=== PATIENT | female | born 1995 | race Two or more races ===

== ENCOUNTER 2024-01-21 01:22 | Emergency (ER) | payer OTHER, SELFPAY ==
[2024-01-21 01:26] VITALS: BP 132/100; PULSE 91; RESP 15; TEMP 36.6; O2SAT 99
--- NOTE | 2024-01-21 01:29 | ED_ITS ---
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 Patient states she started her period 2 days ago. She states she normally does not have menstrual cramps. Also states she vomited twice today which is abnormal. States she has been changing her pad twice daily. Denies vaginal discharge, dysuria, concern f or STDs. States she attempted Tylenol ibuprofen today without improvement. No fevers. Related Data Allergies Allergy/AdvReac Type Severity Reaction Status Date / Time No Known Allergies Allergy Verified 01/21/24 01:31 Review of Systems Review of Systems: All systems reviewed & are unremarkable except as noted in HPI and below Exam Narrative: GENERAL: Well-appearing, well-nourished, and in no acute distress. HEAD: Normocephalic, atraumatic. EYES: EOMI. ENT: Nares clear, no rhinorrhea or epistaxis. Mucous membranes moist. NECK: Supple. CHEST: Clear to auscultation. No respiratory distress. HEART: Regular rate and rhythm. No murmur heard. Normal peripheral pulses. ABDOMEN: Normoactive bowel sounds. Abdomen soft with minimal tenderness in the suprapubic region. No rebound, guarding or rigidity EXTREMITIES: Normal range of motion. No edema. SKIN: Warm, dry, no rash. NEURO: No focal deficits. Alert and oriented x3 Course Vital Signs Vital signs: Vital Signs Temperature 98 F 01/21/24 01:26 Pulse Rate 91 01/21/24 01:26 Respiratory Rate 15 01/21/24 01:26 Blood Pressure 132/100 H 01/21/24 01:26 Pulse Oximetry 99 01/21/24 01:26 Oxygen Delivery Room Air 01/21/24 01:26 Temperature 98 F 01/21/24 01:26 Pulse Rate 88 01/21/24 02:33 Respiratory Rate 15 01/21/24 02:33 Blood Pressure 136/96 H 01/21/24 02:33 Pulse Oximetry 100 01/21/24 02:33 Oxygen Delivery Room Air 01/21/24 01:26 MDM - Female Genitourinary MDM Narrative Medical decision making narrative: 29-year-old female presents to the emergency department for menstrual cramping x1 day. Also reporting 2 episodes of vomiting today. Vitals with elevated blood pressure, otherwise unremarkable. She is afebrile nontoxic appearing. Exam significant for the above. is negative. CBC with mild leukocytosis of 10.3, hemoglobin 11.5. Chemistries are unremarkable. No prior for comparison. UA w/o UTI. Patient updated on results. She was given IV Toradol and Zofran with improvement in symptoms. Advised to follow-up closely with OBGYN. Strict ED return precautions discussed. She is agreeable to plan verbalized understanding. Discharged in stable condition Lab Data 01/21/24 01:44 01/21/24 01:58 Labs: Lab Results 01/21/24 01/21/24 01/21/24 Range/Units 01:44 01:58 02:04 WBC 12.3 H (4.5-10.0) K/mm3 RBC 4.07 L (4.2-5.4) M/mm3 Hgb 11.5 L (12.0-15.0) g/dL Hct 36.0 L (37.0-47.0) % MCV 88.5 (80-100) fl MCH 28.3 (26-34) pg MCHC 31.9 L (32-36) g/dl RDW 13.7 (11.5-14.5) % Plt Count 270 (150-375) k/mm3 MPV 9.6 (7.4-10.4) fl Immature Gran % (Auto) 0.3 (0-0.5) % Neut % (Auto) 74.0 H (45.5-73.1) % Lymph % (Auto) 17.6 L (18.3-44.2) % [place] % (Auto) 6.8 (2.6-8.5) % Eos % (Auto) 1.1 (0-4.4) % Baso % (Auto) 0.2 (0.2-1.2) % Lymph # (Auto) 2.16 (0.9-3.2) K/mm3 [place] # (Auto) 0.8 H (0.1-0.6) K/mm3 Eos # (Auto) 0.1 (0-0.3) K/mm3 Baso # (Auto) 0.0 (0.0-0.1) K/mm3 Abs Immat Gran (auto) 0.04 H (0.00-0.031) K/mm3 Absolute Neuts (auto) 9.1 H (1.3-6.7) K/mm3 Absolute Nucleated RBC 0.000 (0.0-0.012) K/mm3 Nucleated RBC % 0.0 (0.0-0.2) % Sodium 137 (137-145) mmol/L Potassium 4.0 (3.4-5.0) mmol/L Chloride 108 H (98-107) mmol/L Carbon Dioxide 23 (22-30) mmol/L Anion Gap 6 (4-12) mmol/L BUN 13 (7-17) mg/dL Creatinine 0.50 L (0.7-1.0) mg/dL Estim Creat Clear Calc 133 ml/min Estimated GFR > 60 (59 - ) Glucose 98 (65-110) mg/dL Calcium 8.6 (8.4-10.2) mg/dL Urine Color Yellow (Yellow) Urine Appearance Clear (Clear) Urine pH 5.0 (5.0-9.0) Ur Specific [place] 1.025 (1.001-1.035) Urine Protein Negative (Negative) mg/dL Urine Glucose (UA) Negative (Negative) mg/dL Urine Ketones Negative (Negative) mg/dL Ur Blood (Man) Negative (Negative) Urine Nitrate Negative (Negative) Urine Bilirubin Negative (Negative) Urine Urobilinogen 0.2 (<2.0) mg/dL Leukocyte Esterase Rfl 1+ H (Negative) EMBER/UL Urine RBC 0-2 (0-2) /hpf Urine WBC 0-5 (0-3) /hpf Ur Squamous Epith Cells None seen (Few) /hpf Urine Bacteria None seen /hpf Urine Casts 0-2 POC Urine HCG, Qual (Negative) 01/21/24 Range/Units 02:09 WBC (4.5-10.0) K/mm3 RBC (4.2-5.4) M/mm3 Hgb (12.0-15.0) g/dL Hct (37.0-47.0) % MCV (80-100) fl MCH (26-34) pg MCHC (32-36) g/dl RDW (11.5-14.5) % Plt Count (150-375) k/mm3 MPV (7.4-10.4) fl Immature Gran % (Auto) (0-0.5) % Neut % (Auto) (45.5-73.1) % Lymph % (Auto) (18.3-44.2) % [place] % (Auto) (2.6-8.5) % Eos % (Auto) (0-4.4) % Baso % (Auto) (0.2-1.2) % Lymph # (Auto) (0.9-3.2) K/mm3 [place] # (Auto) (0.1-0.6) K/mm3 Eos # (Auto) (0-0.3) K/mm3 Baso # (Auto) (0.0-0.1) K/mm3 Abs Immat Gran (auto) (0.00-0.031) K/mm3 Absolute Neuts (auto) (1.3-6.7) K/mm3 Absolute Nucleated RBC (0.0-0.012) K/mm3 Nucleated RBC % (0.0-0.2) % Sodium (137-145) mmol/L Potassium (3.4-5.0) mmol/L Chloride (98-107) mmol/L Carbon Dioxide (22-30) mmol/L Anion Gap (4-12) mmol/L BUN (7-17) mg/dL Creatinine (0.7-1.0) mg/dL Estim Creat Clear Calc ml/min Estimated GFR (59 - ) Glucose (65-110) mg/dL Calcium (8.4-10.2) mg/dL Urine Color (Yellow) Urine Appearance (Clear) Urine pH (5.0-9.0) Ur Specific [place] (1.001-1.035) Urine Protein (Negative) mg/dL Urine Glucose (UA) (Negative) mg/dL Urine Ketones (Negative) mg/dL Ur Blood (Man) (Negative) Urine Nitrate (Negative) Urine Bilirubin (Negative) Urine Urobilinogen (<2.0) mg/dL Leukocyte Esterase Rfl (Negative) EMBER/UL Urine RBC (0-2) /hpf Urine WBC (0-3) /hpf Ur Squamous Epith Cells (Few) /hpf Urine Bacteria /hpf Urine Casts POC Urine HCG, Qual Negative (Negative) Discharge Plan Discharge Clinical Impression: Menstrual cramps Patient Disposition: Home, Self-Care Condition: Stable Instructions: Antibiotic Form, Dysmenorrhea (ED) Additional Instructions: You were evaluated in the emergency department for menstrual cramps. Your workup here is reassuring. Please take the anti-inflammatories as needed follow-up with an OBGYN. Return to the emergency department if he develops significantly worsening pain, fever, a saturate through 1 pad per hour or other concerning symptoms. Prescriptions: New ibuprofen 800 mg tablet 800 mg PO TID PRN (Reason: pain) Qty: 20 0RF ondansetron 4 mg tablet,disintegrating 4 mg PO Q8H Qty: 14 0RF Follow-up/Referrals: Rufus Dyer MD [Physician] - 1 Day UNKNOWN,DOCTOR [Non-Staff] -
[2024-01-21] MEDS: KETOROLAC 15 MG/ML VIAL (*BKC) IV PUSH ×2 (01:44→02:12)
[2024-01-21] MEDS: ONDANSETRON INJ 4 MG/2 ML VIAL IV PUSH (01:47)
[2024-01-21 01:48] LABS: Basophils Percent Auto 0.2 % (0.2-1.2); Eosinophils Absolute Auto 0.1 K/mm3 (0-0.3); Eosinophils Percent Auto 1.1 % (0-4.4); Hemoglobin 11.5 g/dL (12.0-15.0); Immature Granulocyte Absolute 0.04 K/mm3 (0.00-0.031); Immature Granulocyte Percent A 0.3 % (0-0.5); Lymphocytes Absolute Auto 2.16 K/mm3 (0.9-3.2); Lymphocytes Percent Auto 17.6 % (18.3-44.2); Mean Corpuscular HGB Conc 31.9 g/dl (32-36); Mean Corpuscular Hemoglobin 28.3 pg (26-34); Mean Corpuscular Volume 88.5 fl (80-100); Mean Platelet Volume 9.6 fl (7.4-10.4); Monocytes Absolute Auto 0.8 K/mm3 (0.1-0.6); Monocytes Percent Auto 6.8 % (2.6-8.5); Neutrophils Absolute Auto 9.1 K/mm3 (1.3-6.7); Platelet Count Result 270 k/mm3 (150-375); Red Blood Count 4.07 M/mm3 (4.2-5.4); Red Cell Distribution Width 13.7 % (11.5-14.5); White Blood Count 12.3 K/mm3 (4.5-10.0)
[2024-01-21 02:12] LABS: BEDSIDEPREGUCG Negative (Negative)
[2024-01-21 02:18] LABS: Anion Gap 6 mmol/L (4-12); Blood Urea Nitrogen 13 mg/dL (7-17); Calcium 8.6 mg/dL (8.4-10.2); Carbon Dioxide 23 mmol/L (22-30); Chloride 108 mmol/L (98-107); Estimated CRCL calculation 133 ml/min; Estimated Glomerular Filt Rate > 60; Glucose 98 mg/dL (65-110); Sodium 137 mmol/L (137-145)
[2024-01-21 02:21] LABS: Bacteria Urine None Seen /hpf; Non Pathogenic Casts 0-2; RBC Urine 0-2 /hpf (0-2); Squamous Epithelial Cell Urine None Seen /hpf (Few); WBC Urine 0-5 /hpf (0-3)
[2024-01-21 02:33] VITALS: BP 136/96; PULSE 88; RESP 15; O2SAT 100
[2024-01-21 02:33] LABS: Appearance Urine Clear (Clear); Color Urine Yellow (Yellow); Protein Urine Negative (Negative); Specific Grav Ur 1.025 (1.001-1.035)
[2024-01-21 02:34] LABS: Add Urine Microscopic? YES; Bilirubin Urine Negative (Negative); Blood Urine Negative (Negative); Glucose Urine UA Negative (Negative); Ketones Urine Negative (Negative); Leukocyte Esterase Ur 1+ LEU/UL (Negative); Nitrate Urine Negative (Negative); Urobilinogen Urine 0.2 mg/dL (<2.0)
== END 2024-01-21 02:35 | disposition home or self-care (01) ==
PROVIDERS: Emergency Provider Physician Assistant
DX: N94.6 Dysmenorrhea, unspecified (principal)
CPT/HCPCS: 36415; 80048; 81001; 81025; 85025; 87086; 96374; 96375; 99284; J1885; J2405

== ENCOUNTER 2024-01-21 21:26 | Inpatient (IN) | payer OTHER, SELFPAY ==
[2024-01-21] VITALS (8 sets, daily range): BP systolic 96–120; BP diastolic 53–82; PULSE 92–113; RESP 12–23; TEMP 38.2; O2SAT 97–100
--- NOTE | ~2024-01-21 | CT_ITS ---
CLINICAL INDICATION: Lower abdominal pain and fever COMPARISON: None. TECHNIQUE: Multiple contiguous axial images of the abdomen and pelvis were performed following the ad ministration of with 100 mL Omnipaque-350 intravenous contrast The dose-length product (DLP) was 540.85 mGy-cm. Automated exposure control and iterative reconstruction technique were employed. FINDINGS/OBSERVATIONS: Visualized lower thorax: The bilateral lung bases are clear. The heart is of normal size, without pericardial effusion. Small hiatal hernia is present. Liver: The liver enhances homogeneously, and is not enlarged measuring 16 cm in longitudinal dimension. No p ortal venous gas is present. Gallbladder and biliary system: The gallbladder is only minimally distended, and otherwise unremarkable. Pancreas: The pancreas enhances homogeneously without ductal dilatation. Spleen: The spleen enhances homogeneously and is not enlarged measuring 8 cm in longitudinal dimension. Kidneys: The bilateral kidneys enhance symmetrically without hydronephrosis or renal calculi. Adrenal glands: Unremarkable. Gastrointestinal tract: The cecum is distended measuring 5 to 6 cm in greatest caliber. Pneumatosis is suspected within the cecum as multiple spherical punctate foci of air are identified, trapped against the inner wall (along the nondependent side) of the cecum. Remaining bowel loops are decompressed, and otherwise unremarkable. Appendix: The air-filled appendix is of normal caliber (axial series, images 131-139) Vasculature: Unremarkable. No aneurysmal dilatation or significant stenosis. No thrombus is visualized within the superior mesenteric vein or the mesenteric arteries. Lymph nodes: No pathologically enlarged or morphologically suspicious lymph nodes within the retroperitoneum or at the root of the mesentery. Pelvic structures: The bladder is decompressed, and otherwise unremarkable. The uterus is anteverted and anteflexed. Body wall and musculoskeletal: No significant degenerative disease within the lower thoracic or lumbosacral spine. IMPRESSION: Findings within the minimally distended cecum which may represent pneumatosis. Given the patient's mi ld acidosis (CO2 of 20) and leukocytosis (19.8), bowel ischemia is high in the differential diagnosis . Typically when these findings are within the cecum in an otherwise healthy patient, it is due to pse udopneumatosis , and strictly a CT finding. However, given patient's acidosis and leukocytosis (as we ll as fever) early ischemic bowel is of concern. No portal venous air. No filling defects within the superior mesenteric vein or mesenteric arterial s ystem. However, with the finding of ischemic bowel, a thrombus is rarely visualized with CT. These findings were discussed with Farrah Burns at 11:15 on 01/21/2024 Reviewed, dictated and finalized at location A. DESK COORDINATOR IMPRESSION: Findings within the minimally distended cecum which may represent pneumatosis. Given the patient's mild acidosis (CO2 of 20) and leukocytosis (19.8), bowel is chemia is high in the differential diagnosis. Typically when these findings are within the cecum in an otherwise healthy emily ent, it is due to pseudopneumatosis , and strictly a CT finding. However, give n patient's acidosis and leukocytosis (as well as fever) early ischemic bowel i s of concern. No portal venous air. No filling defects within the superior mesenteric vein or mesenteric arterial system. However, with the finding of ischemic bowel, a thr ombus is rarely visualized with CT. These findings were discussed with Farrah Burns at 11:15 on 01/21/2024
[2024-01-21 21:55] LABS: Basophils Percent Auto 0.2 % (0.2-1.2); Eosinophils Percent Auto 0.1 % (0-4.4); Hematocrit 37.1 % (37.0-47.0); Hemoglobin 12.1 g/dL (12.0-15.0); Immature Granulocyte Percent A 0.5 % (0-0.5); Lymphocytes Absolute Auto 1.65 K/mm3 (0.9-3.2); Lymphocytes Percent Auto 8.3 % (18.3-44.2); Mean Corpuscular HGB Conc 32.6 g/dl (32-36); Mean Corpuscular Hemoglobin 28.4 pg (26-34); Mean Corpuscular Volume 87.1 fl (80-100); Mean Platelet Volume 9.6 fl (7.4-10.4); Monocytes Absolute Auto 1.1 K/mm3 (0.1-0.6); Monocytes Percent Auto 5.7 % (2.6-8.5); Neutrophils Absolute Auto 16.9 K/mm3 (1.3-6.7); Neutrophils Percent Auto 85.2 % (45.5-73.1); Platelet Count Result 290 k/mm3 (150-375); Red Blood Count 4.26 M/mm3 (4.2-5.4); White Blood Count 19.8 K/mm3 (4.5-10.0)
[2024-01-21 21:57] LABS: BEDSIDEPREGUCG Negative (Negative)
--- NOTE | 2024-01-21 22:08 | ED.ABDPAIN ---
HPI - Abdominal Pain General Chief Complaint: Abdominal Pain <ANGELINA Alegria Last Filed: 01/22/24 00:45> Stated Complaint: lower abd pain <ANGELINA Alegria Last Filed: 01/22/24 00:45> Time Seen by Provider: 01/21/24 21:36 <ANGELINA Alegria Last Filed: 01/22/24 00:45> Source: patient <ANGELINA Alegria Last Filed: 01/22/24 00:45> Mode of arrival: ambulatory <ANGELINA Alegria Last Filed: 01/22/24 00:45> Limitations: no limitations <ANGELINA Alegria Last Filed: 01/22/24 00:45> History of Present Illness HPI narrative: This is a 29 year old female that presents to the ER for right lower quadrant pain. Ongoing since yesterday. Evaluated in the ER for this and discharged last night. Pain today worsened and she developed a fever which prompted her to be seen again. Denies vomiting, diarrhea, dysuria. <ANGELINA Alegria Last Filed: 01/22/24 00:45> Related Data Home Medications: Home Medications Medication Instructions Recorded Confirmed dextroamphetamine-amphetamine 10 10 mg PO DAILY 01/22/24 01/22/24 mg tablet (Adderall) escitalopram oxalate 10 mg tablet 10 mg PO QHS 01/22/24 01/22/24 (Lexapro) <ANGELINA Alegria Last Filed: 01/22/24 00:45> Allergies/Adverse Reactions: Allergies Allergy/AdvReac Type Severity Reaction Status Date / Time No Known Allergies Allergy Verified 01/21/24 21:26 <ANGELINA Alegria Last Filed: 01/22/24 00:45> Review of Systems Review of Systems: CONSTITUTIONAL: Reports fever GASTROINTESTINAL: Reports abdominal pain, nausea GENITOURINARY: Denies dysuria or hematuria. <ANGELINA Alegria Last Filed: 01/22/24 00:45> All systems reviewed & are unremarkable except as noted in HPI and below <ANGELINA Alegria Filed: 01/22/24 00:45> [facility] Past Medical History Medical History: Medical History (Updated 01/22/24 @ 00:45 by Farrah Burns PA-C) No active medical problems <Farrah Burns PA-C - Last Filed: 01/22/24 00:45> Social History Social History: Social History (Updated 01/21/24 @ 22:10 by Farrah Burns PA-C) Smoking status: Light tobacco smoker Tobacco type: cigarettes Alcohol intake: current Drinks per week: 1 Substance use: never Substance use type: does not use Do You Feel Safe in your Home?: Yes Lack of Transportation: No Lack of Food: Never True Current Housing: I Have Housing Concerned About Future Housing: No Difficulty Paying Gas/Electric Bills: No Difficulty Paying for Meds: No Currently Unemployed: No Education: Bachelor's Degree Difficulty w/ Childcare or Family Care: No Spiritual care concerns: No <Farrah Burns PA-C - Last Filed: 01/22/24 00:45> Exam Narrative: GENERAL: Well-appearing, well-nourished, and in no acute distress. HEAD: Normocephalic, atraumatic. EYES: EOMI. CHEST: Clear to auscultation. No respiratory distress. No wheezes rales or rhonchi HEART: Regular rate and rhythm. No murmur heard. Normal peripheral pulses. ABDOMEN: Soft, nondistended, normal active bowel sounds. Tender to palpation in the right lower quadrant, without guarding EXTREMITIES: Normal range of motion. No edema. SKIN: Warm, dry, no rash. NEURO: No focal deficits. Alert and oriented x3. 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 Agrees with hydration, IV antibiotics. They will consult <Farrah Burns PA-C - Last Filed: 01/22/24 00:45> Date: 01/22/24 <ANGELINA Alegria Last Filed: 01/22/24 00:45> Consultation #2: spoke with hospitalist about patient and workup who accepts admission <ANGELINA Alegria Last Filed: 01/22/24 00:45> Date: 01/22/24 <ANGELINA Alegria Last Filed: 01/22/24 00:45> Vital Signs Vital signs: Vital Signs Temperature 38.2 C H 01/21/24 21:30 Pulse Rate 113 H 01/21/24 21:30 Respiratory Rate 14 01/21/24 21:30 Blood Pressure 120/82 01/21/24 21:30 Pulse Oximetry 100 01/21/24 21:30 Oxygen Delivery Room Air 01/21/24 21:30 Temperature 36.6 C 01/22/24 01:15 Pulse Rate 84 01/22/24 01:15 Respiratory Rate 16 01/22/24 01:15 Blood Pressure 100/60 01/22/24 01:15 Pulse Oximetry 99 01/22/24 01:15 Oxygen Delivery Room Air 01/22/24 01:52 <ANGELINA Alegria Last Filed: 01/22/24 00:45> Vital Signs Temperature 38.2 C H 01/21/24 21:30 Pulse Rate 113 H 01/21/24 21:30 Respiratory Rate 14 01/21/24 21:30 Blood Pressure 120/82 01/21/24 21:30 Pulse Oximetry 100 01/21/24 21:30 Oxygen Delivery Room Air 01/21/24 21:30 Temperature 36.6 C 01/22/24 01:15 Pulse Rate 84 01/22/24 01:15 Respiratory Rate 16 01/22/24 01:15 Blood Pressure 100/60 01/22/24 01:15 Pulse Oximetry 99 01/22/24 01:15 Oxygen Delivery Room Air 01/22/24 01:52 <Reginald Davila MD - Last Filed: 01/22/24 03:50> MDM - Abdominal Pain MDM Narrative Medical decision making narrative: Patient presents to the emergency department for fevers, lower abdominal pain. patient febrile and tachycardic upon arrival, hydrated and given antipyretic with improvement. CBC with leukocytosis to 19.8. Metabolic panel with bicarb of 20. Lactic acid is not elevated. CRP 16.9. Urine without evidence of infection. CT abdomen pelvis shows minimally distended cecum with possible pneumatosis. Spoke with general surgery who will consult. Blood cultures drawn and patient started on IV antibiotics. Spoke with hospitalist about patient and workup who accepts admission <Farrah Burns PA-C - Last Filed: 01/22/24 00:45> Differential Diagnosis Differential diagnosis: Likely acute appendicitis, calculus of kidney and diverticulitis <Farrah Burns PA-C - Last Filed: 01/22/24 00:45> Lab Data Attestation: I reviewed the patient's lab results. <Farrah Burns PA-C - Last Filed: 01/22/24 00:45> Result diagrams: 01/21/24 21:48 01/21/24 21:48 <Farrah Burns PA-C - Last Filed: 01/22/24 00:45> Labs: Lab Results 01/21/24 01/21/24 01/21/24 Range/Units 21:48 21:48 21:55 WBC 19.8 H (4.5-10.0) K/mm3 RBC 4.26 (4.2-5.4) M/mm3 Hgb 12.1 (12.0-15.0) g/dL Hct 37.1 (37.0-47.0) % MCV 87.1 (80-100) fl MCH 28.4 (26-34) pg MCHC 32.6 (32-36) g/dl RDW 14.0 (11.5-14.5) % Plt Count 290 (150-375) k/mm3 MPV 9.6 (7.4-10.4) fl Immature Gran % (Auto) 0.5 (0-0.5) % Neut % (Auto) 85.2 H (45.5-73.1) % Lymph % (Auto) 8.3 L (18.3-44.2) % [place] % (Auto) 5.7 (2.6-8.5) % Eos % (Auto) 0.1 (0-4.4) % Baso % (Auto) 0.2 (0.2-1.2) % Lymph # (Auto) 1.65 (0.9-3.2) K/mm3 [place] # (Auto) 1.1 H (0.1-0.6) K/mm3 Eos # (Auto) 0.0 (0-0.3) K/mm3 Baso # (Auto) 0.0 (0.0-0.1) K/mm3 Abs Immat Gran (auto) 0.10 H (0.00-0.031) K/mm3 Absolute Neuts (auto) 16.9 H (1.3-6.7) K/mm3 Absolute Nucleated RBC 0.000 (0.0-0.012) K/mm3 Nucleated RBC % 0.0 (0.0-0.2) % Sodium 136 L (137-145) mmol/L Potassium 4.2 (3.4-5.0) mmol/L Chloride 105 (98-107) mmol/L Carbon Dioxide 20 L (22-30) mmol/L Anion Gap 11 (4-12) mmol/L BUN 11 (7-17) mg/dL Creatinine 0.50 L (0.7-1.0) mg/dL Estim Creat Clear Calc 145 ml/min Estimated GFR > 60 (59 - ) Glucose 107 (65-110) mg/dL Lactic Acid (0.7-2.0) mmol/L Calcium 9.0 (8.4-10.2) mg/dL Total Bilirubin 0.6 (0.2-1.3) mg/dL AST 19 (14-36) U/L ALT 13 (6-35) U/L Alkaline Phosphatase 53 (38-126) U/L C-Reactive Protein 16.9 H Cancelled (<1.0) mg/dL Total Protein 8.0 (6.3-8.2) g/dL Albumin 4.1 (3.5-5.1) g/dL Lipase 48 (23-300) U/L POC Urine HCG, Qual Negative (Negative) 01/21/24 Range/Units 22:48 WBC (4.5-10.0) K/mm3 RBC (4.2-5.4) M/mm3 Hgb (12.0-15.0) g/dL Hct (37.0-47.0) % MCV (80-100) fl MCH (26-34) pg MCHC (32-36) g/dl RDW (11.5-14.5) % Plt Count (150-375) k/mm3 MPV (7.4-10.4) fl Immature Gran % (Auto) (0-0.5) % Neut % (Auto) (45.5-73.1) % Lymph % (Auto) (18.3-44.2) % [place] % (Auto) (2.6-8.5) % Eos % (Auto) (0-4.4) % Baso % (Auto) (0.2-1.2) % Lymph # (Auto) (0.9-3.2) K/mm3 [place] # (Auto) (0.1-0.6) K/mm3 Eos # (Auto) (0-0.3) K/mm3 Baso # (Auto) (0.0-0.1) K/mm3 Abs Immat Gran (auto) (0.00-0.031) K/mm3 Absolute Neuts (auto) (1.3-6.7) K/mm3 Absolute Nucleated RBC (0.0-0.012) K/mm3 Nucleated RBC % (0.0-0.2) % Sodium (137-145) mmol/L Potassium (3.4-5.0) mmol/L Chloride (98-107) mmol/L Carbon Dioxide (22-30) mmol/L Anion Gap (4-12) mmol/L BUN (7-17) mg/dL Creatinine (0.7-1.0) mg/dL Estim Creat Clear Calc ml/min Estimated GFR (59 - ) Glucose (65-110) mg/dL Lactic Acid 0.7 (0.7-2.0) mmol/L Calcium (8.4-10.2) mg/dL Total Bilirubin (0.2-1.3) mg/dL AST (14-36) U/L ALT (6-35) U/L Alkaline Phosphatase (38-126) U/L C-Reactive Protein (<1.0) mg/dL Total Protein (6.3-8.2) g/dL Albumin (3.5-5.1) g/dL Lipase (23-300) U/L POC Urine HCG, Qual (Negative) <Farrah Burns PA-C - Last Filed: 01/22/24 00:45> Lab Results 01/21/24 01/21/24 01/21/24 Range/Units 21:48 21:48 21:55 WBC 19.8 H (4.5-10.0) K/mm3 RBC 4.26 (4.2-5.4) M/mm3 Hgb 12.1 (12.0-15.0) g/dL Hct 37.1 (37.0-47.0) % MCV 87.1 (80-100) fl MCH 28.4 (26-34) pg MCHC 32.6 (32-36) g/dl RDW 14.0 (11.5-14.5) % Plt Count 290 (150-375) k/mm3 MPV 9.6 (7.4-10.4) fl Immature Gran % (Auto) 0.5 (0-0.5) % Neut % (Auto) 85.2 H (45.5-73.1) % Lymph % (Auto) 8.3 L (18.3-44.2) % [place] % (Auto) 5.7 (2.6-8.5) % Eos % (Auto) 0.1 (0-4.4) % Baso % (Auto) 0.2 (0.2-1.2) % Lymph # (Auto) 1.65 (0.9-3.2) K/mm3 [place] # (Auto) 1.1 H (0.1-0.6) K/mm3 Eos # (Auto) 0.0 (0-0.3) K/mm3 Baso # (Auto) 0.0 (0.0-0.1) K/mm3 Abs Immat Gran (auto) 0.10 H (0.00-0.031) K/mm3 Absolute Neuts (auto) 16.9 H (1.3-6.7) K/mm3 Absolute Nucleated RBC 0.000 (0.0-0.012) K/mm3 Nucleated RBC % 0.0 (0.0-0.2) % Sodium 136 L (137-145) mmol/L Potassium 4.2 (3.4-5.0) mmol/L Chloride 105 (98-107) mmol/L Carbon Dioxide 20 L (22-30) mmol/L Anion Gap 11 (4-12) mmol/L BUN 11 (7-17) mg/dL Creatinine 0.50 L (0.7-1.0) mg/dL Estim Creat Clear Calc 145 ml/min Estimated GFR > 60 (59 - ) Glucose 107 (65-110) mg/dL Lactic Acid (0.7-2.0) mmol/L Calcium 9.0 (8.4-10.2) mg/dL Total Bilirubin 0.6 (0.2-1.3) mg/dL AST 19 (14-36) U/L ALT 13 (6-35) U/L Alkaline Phosphatase 53 (38-126) U/L C-Reactive Protein 16.9 H Cancelled (<1.0) mg/dL Total Protein 8.0 (6.3-8.2) g/dL Albumin 4.1 (3.5-5.1) g/dL Lipase 48 (23-300) U/L POC Urine HCG, Qual Negative (Negative) 01/21/24 Range/Units 22:48 WBC (4.5-10.0) K/mm3 RBC (4.2-5.4) M/mm3 Hgb (12.0-15.0) g/dL Hct (37.0-47.0) % MCV (80-100) fl MCH (26-34) pg MCHC (32-36) g/dl RDW (11.5-14.5) % Plt Count (150-375) k/mm3 MPV (7.4-10.4) fl Immature Gran % (Auto) (0-0.5) % Neut % (Auto) (45.5-73.1) % Lymph % (Auto) (18.3-44.2) % [place] % (Auto) (2.6-8.5) % Eos % (Auto) (0-4.4) % Baso % (Auto) (0.2-1.2) % Lymph # (Auto) (0.9-3.2) K/mm3 [place] # (Auto) (0.1-0.6) K/mm3 Eos # (Auto) (0-0.3) K/mm3 Baso # (Auto) (0.0-0.1) K/mm3 Abs Immat Gran (auto) (0.00-0.031) K/mm3 Absolute Neuts (auto) (1.3-6.7) K/mm3 Absolute Nucleated RBC (0.0-0.012) K/mm3 Nucleated RBC % (0.0-0.2) % Sodium (137-145) mmol/L Potassium (3.4-5.0) mmol/L Chloride (98-107) mmol/L Carbon Dioxide (22-30) mmol/L Anion Gap (4-12) mmol/L BUN (7-17) mg/dL Creatinine (0.7-1.0) mg/dL Estim Creat Clear Calc ml/min Estimated GFR (59 - ) Glucose (65-110) mg/dL Lactic Acid 0.7 (0.7-2.0) mmol/L Calcium (8.4-10.2) mg/dL Total Bilirubin (0.2-1.3) mg/dL AST (14-36) U/L ALT (6-35) U/L Alkaline Phosphatase (38-126) U/L C-Reactive Protein (<1.0) mg/dL Total Protein (6.3-8.2) g/dL Albumin (3.5-5.1) g/dL Lipase (23-300) U/L POC Urine HCG, Qual (Negative) <Reginald Davila MD - Last Filed: 01/22/24 03:50> Imaging Data Radiologist's impression: ITS Impressions Abdomen/Pelvis CT 01/21/24 22:47 IMPRESSION: Findings within the minimally distended cecum which may represent pneumatosis. Given the patient's mild acidosis (CO2 of 20) and leukocytosis (19.8), bowel ischemia is high in the differential diagnosis. Typically when these findings are within the cecum in an otherwise healthy patient, it is due to pseudopneumatosis , and strictly a CT finding. However, given patient's acidosis and leukocytosis (as well as fever) early ischemic bowel is of concern. No portal venous air. No filling defects within the superior mesenteric vein or mesenteric arterial system. However, with the finding of ischemic bowel, a thrombus is rarely visualized with CT. These findings were discussed with Farrah Burns at 11:15 on 01/21/2024 <Farrah Burns PA-C - Last Filed: 01/22/24 00:45> ITS Impressions Abdomen/Pelvis CT 01/21/24 22:47 IMPRESSION: Findings within the minimally distended cecum which may represent pneumatosis. Given the patient's mild acidosis (CO2 of 20) and leukocytosis (19.8), bowel ischemia is high in the differential diagnosis. Typically when these findings are within the cecum in an otherwise healthy patient, it is due to pseudopneumatosis , and strictly a CT finding. However, given patient's acidosis and leukocytosis (as well as fever) early ischemic bowel is of concern. No portal venous air. No filling defects within the superior mesenteric vein or mesenteric arterial system. However, with the finding of ischemic bowel, a thrombus is rarely visualized with CT. These findings were discussed with Farrah Burns at 11:15 on 01/21/2024 <Reginald Davila MD - Last Filed: 01/22/24 03:50> Critical Care Time Critical Care Time Critical Care Time: Yes <Farrah Burns PA-C - Last Filed: 01/22/24 00:45> Total Critical Care Time: 35 <ANGELINA Alegria Last Filed: 01/22/24 00:45> Discharge Plan Discharge Clinical Impression: Sepsis Qualifiers: Sepsis type: sepsis due to unspecified organism Sepsis acute organ dysfunction status: without acute organ dysfunction Qualified Code(s): A41.9 - Sepsis, unspecified organism <ANGELINA Alegria Last Filed: 01/22/24 00:45> Patient Disposition: Still a Patient <ANGELINA Alegria Last Filed: 01/22/24 00:45> Condition: Improved <ANGELINA Alegria Last Filed: 01/22/24 00:45>
[2024-01-21 22:16] LABS: Alanine Aminotransferase 13 U/L (6-35); Albumin Level 4.1 g/dL (3.5-5.1); Alkaline Phosphatase 53 U/L (38-126); Anion Gap 11 mmol/L (4-12); Aspartate Amino Transferase 19 U/L (14-36); Bilirubin,Total 0.6 mg/dL (0.2-1.3); Blood Urea Nitrogen 11 mg/dL (7-17); Carbon Dioxide 20 mmol/L (22-30); Chloride 105 mmol/L (98-107); Estimated CRCL calculation 145 ml/min; Estimated Glomerular Filt Rate > 60; Glucose 107 mg/dL (65-110); Lipase 48 U/L (23-300); Potassium 4.2 mmol/L (3.4-5.0); Sodium 136 mmol/L (137-145)
[2024-01-21 22:26] LABS: CRP 16.9 mg/dL (<1.0)
[2024-01-21] MEDS: ONDANSETRON INJ 4 MG/2 ML VIAL IV PUSH (22:28)
[2024-01-21] MEDS: SODIUM CHLORIDE 0.9% IV 1,000 ML 999 ML IV CONT ×2 (22:28→23:33)
[2024-01-21] MEDS: IBUPROFEN IV 800 MG/200 ML 800 MG/200 ML BAG 400 MG IVPB (22:29)
[2024-01-21 23:02] LABS: Lactic Acid Reflex 0.7 mmol/L (0.7-2.0)
[2024-01-21] MEDS: PIPERACILLN/TAZ 3.375GM/NS50ML 3.375 GM/50 ML BAG IVPB (23:32)
--- NOTE | 2024-01-21 23:49 | P.HP_ITS ---
H&P: HPI History of Present Illness Date/Time: 01/21/24 23:49 Chief Complaint: right lower quadrant pain Narrative: This is a 29-year-old female with past medical history significant for IBS, patient presents for the 2nd time to the emergency room due to right lower quadrant pain, nausea no vomiting, no diarrhea, had 1 episode of fever, no night sweats, no chills, no rigors. has been her usual state of health prior to this. Preliminary workup was significant for CT of abdomen and pelvis cecal pneumatosis. patient has been admitted for further evaluation,management and treat CLINICAL INDICATION: Lower abdominal pain and fever COMPARISON: None. TECHNIQUE: Multiple contiguous axial images of the abdomen and pelvis were performed following the administration of with 100 mL Omnipaque-350 intravenous contrast The dose-length product (DLP) was 540.85 mGy-cm. Automated exposure control and iterative reconstruction technique were employed. FINDINGS/OBSERVATIONS: Visualized lower thorax: The bilateral lung bases are clear. The heart is of normal size, without pericardial effusion. Small hiatal hernia is present. Liver: The liver enhances homogeneously, and is not enlarged measuring 16 cm in lo ngitudinal dimension. No portal venous gas is present. Gallbladder and biliary system: The gallbladder is only minimally distended, and otherwise unremarkable. Pancreas: The pancreas enhances homogeneously without ductal dilatation. Spleen: The spleen enhances homogeneously and is not enlarged measuring 8 cm in longitudinal dimension. Kidneys: The bilateral kidneys enhance symmetrically without hydronephrosis or renal calculi. Adrenal glands: Unremarkable. Gastrointestinal tract: The cecum is distended measuring 5 to 6 cm in greatest caliber. Pneumatosis is suspected within the cecum as multiple spherical punctate foci of air are identified, trapped against the inner wall (along the nondependent side) of the cecum. Remaining bowel loops are decompressed, and otherwise unremarkable. Appendix: The air-filled appendix is of normal caliber (axial series, images 131-139) Vasculature: Unremarkable. No aneurysmal dilatation or significant stenosis. No thrombus is visualized within the superior mesenteric vein or the mesenteric arteries. Lymph nodes: No pathologically enlarged or morphologically suspicious lymph nodes within the retroperitoneum or at the root of the mesentery. Pelvic structures: The bladder is decompressed, and otherwise unremarkable. The uterus is anteverted and anteflexed. Body wall and musculoskeletal: No significant degenerative disease within the lower thoracic or lumbosacral spine. IMPRESSION: Findings within the minimally distended cecum which may represent pneumatosis. Given the patient's mild acidosis (CO2 of 20) and leukocytosis (19.8), bowel ischemia is high in the differential diagnosis. Typically when these findings are within the cecum in an otherwise healthy patient, it is due to pseudopneumatosis , and strictly a CT finding. However, given patient's acidosis and leukocytosis (as well as fever) early ischemic bowel is of concern. No portal venous air. No filling defects within the superior mesenteric vein or mesenteric arterial system. However, with the finding of ischemic bowel, a thrombus is rarely visualized with CT. [facility] Past Medical History Medical History (Updated 01/22/24 @ 00:45 by Farrah Burns PA-C) No active medical problems Social History Social History (Updated 01/21/24 @ 22:10 by Farrah Burns PA-C) Smoking status: Light tobacco smoker Tobacco type: cigarettes Alcohol intake: current Drinks per week: 1 Substance use: never Substance use type: does not use Do You Feel Safe in your Home?: Yes Lack of Transportation: No Lack of Food: Never True Current Housing: I Have Housing Concerned About Future Housing: No Difficulty Paying Gas/Electric Bills: No Difficulty Paying for Meds: No Currently Unemployed: No Education: Bachelor's Degree Difficulty w/ Childcare or Family Care: No Spiritual care concerns: No Meds Home Medications and Allergies Home Medications Medication Instructions Recorded Confirmed Type ibuprofen 800 mg tablet 800 mg PO TID PRN pain #20 tabs 01/21/24 01/22/24 Rx ondansetron 4 mg disintegrating 4 mg PO Q8H #14 tabs 01/21/24 01/22/24 Rx tablet dextroamphetamine-amphetamine 10 10 mg PO DAILY 01/22/24 01/22/24 History mg tablet (Adderall) escitalopram oxalate 10 mg tablet 10 mg PO QHS 01/22/24 01/22/24 History (Lexapro) Allergies Allergy/AdvReac Type Severity Reaction Status Date / Time No Known Allergies Allergy Verified 01/21/24 21:26 Vital Signs Vital Signs - 24 hr 01/21/24 21:30 01/21/24 21:51 01/21/24 23:40 Temperature 100.8 F H Pulse Rate 113 H 112 H 95 Respiratory Rate 14 14 15 Blood Pressure 120/82 112/65 Pulse Oximetry 100 97 99 Oxygen Delivery Room Air Exam Narrative: patient is laying in a stretcher Const: General: comfortable, no acute distress, well developed, alert, awake and overweight Nutritional Appearance: overweight Orientat ion/consciousness: patient oriented x3 Other: well-appearing HENMT: Head: normal to inspection, normocephalic and atraumatic Ears: hearing grossly normal bilaterally Face/Nose/Sinus: normal facial exam Face and sinus: normal facial exam Eyes: General: appearance normal, both eyes and all related structures Pupils: Equal, round and reactive pupils present EOM: EOMs intact bilaterally Neck: Neck: full ROM, no lymphadenopathy and no JVD Thyroid: thyroid normal Lymphatic: no lymphadenopathy noted Resp: Effort & Inspection: normal respiratory effort and able to speak in complete sentences Auscultation: clear to auscultation bilaterally Cardio: Jugular venous distension: no JVD Rate: regular rate Rhythm: regular rhythm Heart sounds: S1 normal heart sound present and S2 normal heart sound present GI: Inspection: normal to inspection and no visible herniation GI Palp: Yes Soft to palpation, Yes Tenderness to palpation present (GI) (RLQ), No Guarding due to palpation present (GI), No Rigid due to palpation, Yes No hepatosplenomegaly present and No Rebound tenderness present : General: Yes deferred Skin: Rashes: no rashes Wounds: no wounds Neuro: General: patient oriented x3 and CN's II-XI intact bilaterally Cranial nerves: Yes CN's II-XII intact bilaterally and Yes Equal, round and reactive pupils present Cognition (Neuro): normal cognition Speech: normal speech Gait exam (Neuro): Normal gait present Motor exam (neuro): 5/5 motor strength present throughout Extrem: General: normal to inspection, full ROM, no joint enlargement and no pedal edema H&P: Results Labs Labs: Short CBC 01/21/24 Range/Units 21:48 WBC 19.8 H (4.5-10.0) K/mm3 Hgb 12.1 (12.0-15.0) g/dL Hct 37.1 (37.0-47.0) % Plt Count 290 (150-375) k/mm3 [facility] 01/21/24 21:48 Sodium 136 L Potassium 4.2 Chloride 105 Carbon Dioxide 20 L BUN 11 Creatinine 0.50 L Glucose 107 Calcium 9.0 Liver Function 01/21/24 Range/Units 21:48 Total Bilirubin 0.6 (0.2-1.3) mg/dL AST 19 (14-36) U/L ALT 13 (6-35) U/L Alkaline Phosphatase 53 (38-126) U/L Albumin 4.1 (3.5-5.1) g/dL Assessment and Plan Assessment and plan (1) Abdominal pain: Code(s): R10.9 - Unspecified abdominal pain Status: Acute Assessment and Plan: ADMIT TO REGULAR MEDICAL FLOOR NPO IV FLUIDS STARTED [facility] GENERAL SURGERY CONSULT PAIN MANAGEMENT (2) Disorder of cecum: Code(s): K63.9 - Disease of intestine, unspecified Status: Acute Assessment and Plan: 1. Hospitalist MIPS Advance Care Plan I have confirmed that the patient's Advanced Care Plan is present, code status is documented, or surrogate decision maker is listed in patient medical record.: Yes Medication Reconciliation I have utilized all available resources to obtain, update and review the patients current medications (includes all prescriptions, OTC, herbals, cannabis, and nutritional supplements).: Yes
[2024-01-22] VITALS (17 sets, daily range): BP systolic 92–113; BP diastolic 53–69; PULSE 78–104; RESP 13–19; TEMP 36.5–38.1; O2SAT 94–99; BMI 36.2
[2024-01-22] MEDS: SODIUM CHLORIDE 0.9% IV 1,000 ML 150 ML IV CONT ×3 (01:15→15:15)
--- NOTE | 2024-01-22 01:40 | ADMGEN ---
This patient, Brad Long, was admitted to Medical Room 347-. Patient/family oriented to hospital policies and general routines including ID bracelet, bed and alarms, visiting hours, pain management, procedures, bathroom and other care routines, personal items, smoking policy, room service/diet, and visiting hours. Information on how to activate the Rapid Response Team has been discussed. Patient/Family are encouraged to report perceived risks to care and to ask questions if they do not understand what they are told or what they should do.
[2024-01-22 04:23] LABS: Amylase 59 U/L (30-110)
[2024-01-22] MEDS: PIPERACILLN/TAZ 3.375GM/NS50ML 3.375 GM/50 ML BAG IVPB ×4 (05:25→23:09)
[2024-01-22 06:03] LABS: Basophils Percent Auto 0.2 % (0.2-1.2); Eosinophils Percent Auto 0.1 % (0-4.4); Hemoglobin 10.4 g/dL (12.0-15.0); Immature Granulocyte Absolute 0.09 K/mm3 (0.00-0.031); Immature Granulocyte Percent A 0.6 % (0-0.5); Lymphocytes Absolute Auto 1.53 K/mm3 (0.9-3.2); Lymphocytes Percent Auto 10.6 % (18.3-44.2); Mean Corpuscular HGB Conc 30.6 g/dl (32-36); Mean Corpuscular Hemoglobin 28.6 pg (26-34); Mean Corpuscular Volume 93.4 fl (80-100); Mean Platelet Volume 9.6 fl (7.4-10.4); Monocytes Absolute Auto 0.9 K/mm3 (0.1-0.6); Monocytes Percent Auto 6.1 % (2.6-8.5); Neutrophils Absolute Auto 11.9 K/mm3 (1.3-6.7); Neutrophils Percent Auto 82.4 % (45.5-73.1); Platelet Count Result 182 k/mm3 (150-375); Red Blood Count 3.64 M/mm3 (4.2-5.4); White Blood Count 14.4 K/mm3 (4.5-10.0)
[2024-01-22 06:15] LABS: Alanine Aminotransferase 12 U/L (6-35); Albumin Level 3.4 g/dL (3.5-5.1); Alkaline Phosphatase 47 U/L (38-126); Anion Gap 8 mmol/L (4-12); Aspartate Amino Transferase 14 U/L (14-36); Bilirubin,Total 0.4 mg/dL (0.2-1.3); Blood Urea Nitrogen 8 mg/dL (7-17); Calcium 7.4 mg/dL (8.4-10.2); Carbon Dioxide 21 mmol/L (22-30); Chloride 110 mmol/L (98-107); Estimated CRCL calculation 149 ml/min; Estimated Glomerular Filt Rate > 60; Glucose 82 mg/dL (65-110); Potassium 3.5 mmol/L (3.4-5.0); Sodium 139 mmol/L (137-145)
[2024-01-22] MEDS: HYDROmorphone HCL INJ (*CRX) 1 MG/ML SYR IV PUSH (08:20)
[2024-01-22] MEDS: PANTOPRAZOLE SODIUM IV 40 MG VIAL IV PUSH (08:21)
--- NOTE | 2024-01-22 08:44 | PM.IMPN ---
Progress Note: A&P Assessment and Plan (1) Abdominal pain: Code(s): R10.9 - Unspecified abdominal pain Status: Acute Assessment and Plan: IV FLUIDS IV ZOSYN GENERAL SURGERY CONSULT PAIN MANAGEMENT (2) Disorder of cecum: Code(s): K63.9 - Disease of intestine, unspecified Status: Acute Assessment and Plan: 1. (3) Colitis: Code(s): K52.9 - Noninfective gastroenteritis and colitis, unspecified Status: Acute Assessment and Plan: - she is a student here from [facility], [place] - surgery is following: Given her recent travel from [facility], [place] in October, I will additionally order stool studies as well as ova and parasites. She also has a history of IBS and abdominal pain with two colonoscopies when she was a teenager. Inflammatory bowel disease would also be included in the differential. Will order ESR and stool calprotectin for baseline. CRP already ordered and elevated at 16.9. (4) Sepsis: Qualifiers: Sepsis acute organ dysfunction status: without acute organ dysfunction Sepsis type: sepsis due to unspecified organism Qualified Code(s): A41.9 - Sepsis, unspecified organism Code(s): A41.9 - Sepsis, unspecified organism Status: Acute Assessment and Plan: Criteria met - tachycardia, fever, and leukocytosis in the setting of colitis, possible ischemic colitis. WBC trending down. Blood cultures pending. Continue IV antibiotics and IV fluids. Time Spent With Patient Time with patient: Greater than 35 minutes Subjective Date/time seen: 01/22/24 08:44 Interval history: right lower quadrant pain Narrative: This is a 29-year-old female with past medical history significant for IBS, patient presents for the 2nd time to the emergency room due to right lower quadrant pain, nausea no vomiting, no diarrhea, had 1 episode of fever, no night sweats, no chills, no rigors. has been her usual state of health prior to this. Preliminary workup was significant for CT of abdomen and pelvis cecal pneumatosis. patient has been admitted for further evaluation,management and treat 01/21- pt is seen and examined. Pain is controlled with medication, no n/v. surgery is following Review of Systems Constitutional: Constitutional: Denies chills Cardiovascular: Cardiovascular: Denies chest pain Respiratory: Respiratory: Denies chest congestion Gastrointestinal: Gastrointestinal: Reports abdominal pain and Reports nausea Comments: stable now Exam Const: General: comfortable, no acute distress, well developed, alert, awake and overweight Nutritional Appearance: overweight Orientation/consciousness: patient oriented x3 Other: well-appearing HENMT: Head: normal to inspection, normocephalic and atraumatic Ears: hearing grossly normal bilaterally Face/Nose/Sinus: normal facial exam Face and sinus: normal facial exam Eyes: General: appearance normal, both eyes and all related structures Pupils: Equal, round and reactive pupils present EOM: EOMs intact bilaterally Neck: Neck: full ROM, no lymphadenopathy and no JVD Thyroid: thyroid normal Lymphatic: no lymphadenopathy noted Resp: Effort & Inspection: normal respiratory effort and able to speak in complete sentences Auscultation: clear to auscultation bilaterally Cardio: Jugular venous distension: no JVD Rate: regular rate Rhythm: regular rhythm Heart sounds: S1 normal heart sound present and S2 normal heart sound present GI: Inspection: normal to inspection and no visible herniation : General: Yes deferred Skin: Rashes: no rashes Wounds: no wounds Neuro: General: patient oriented x3 and CN's II-XI intact bilaterally Cranial nerves: Yes CN's II-XII intact bilaterally and Yes Equal, round and reactive pupils present Cognition (Neuro): normal cognition Speech: normal speech Gait exam (Neuro): Normal gait present Motor exam (neuro): 5/5 motor strength present throughout Extrem: General: normal to inspection, full ROM, no joint enlargement and no pedal edema Objective Data Vital Signs Vital Signs: Vital Signs - 24 hr 01/21/24 21:30 01/21/24 21:51 01/21/24 23:40 Temperature 100.8 F H Pulse Rate 113 H 112 H 95 Respiratory Rate 14 14 15 Blood Pressure 120/82 112/65 Pulse Oximetry 100 97 99 Oxygen Delivery Room Air 01/21/24 22:43 01/21/24 22:45 01/21/24 23:15 Temperature Pulse Rate 107 H 105 H 97 Respiratory Rate 12 19 16 Blood Pressure Pulse Oximetry 97 98 98 Oxygen Delivery 01/21/24 23:42 01/21/24 23:45 01/22/24 00:00 Temperature Pulse Rate 92 102 H 92 Respiratory Rate 22 H 23 H 13 Blood Pressure 96/53 L Pulse Oximetry 98 99 97 Oxygen Delivery 01/22/24 00:30 01/22/24 00:31 01/22/24 00:55 Temperature 98.5 F Pulse Rate 90 89 Respiratory Rate 14 14 Blood Pressure 101/63 Pulse Oximetry 97 98 Oxygen Delivery 01/22/24 01:52 01/22/24 01:15 01/22/24 04:00 Temperature 98 F 97.7 F Pulse Rate 84 100 Respiratory Rate 16 16 Blood Pressure 100/60 92/60 L Pulse Oximetry 99 96 Oxygen Delivery Room Air 01/22/24 07:29 Temperature Pulse Rate Respiratory Rate Blood Pressure Pulse Oximetry 94 Oxygen Delivery Room Air Intake/Output Intake/Output: Intake & Output 01/19/24 01/20/24 01/21/24 01/22/24 23:59 23:59 23:59 23:59 Intake Total 1200 2100 Balance 1200 2100 Meds/Results Medications: Active Medications Generic Name Dose Route Start Last Admin Trade Name Freq PRN Reason Stop Dose Admin Acetaminophen 650 mg 01/21/24 23:52 Acetaminophen 325 Mg Tablet PO Q4H PRN Mild Pain (1-3) or Fever Hydromorphone HCl 1 mg 01/22/24 00:51 01/22/24 08:20 Hydromorphone Hcl Inj (*Crx) 1 Mg/Ml Syr IV PUSH 1 mg Q3H PRN Administration Pain Rated 7-10 Piperacillin/Tazobactam/Dextrose 3.375 gm in 50 mls @ 100 mls/hr 01/22/24 06:00 01/22/24 05:55 Zosyn 3.375 Gm/Ns 50 Ml IVPB Infused Q6HR CHARI Infusion Sodium Chloride 1,000 mls @ 150 mls/hr 01/21/24 23:55 01/22/24 05:28 Normal Saline Iv IV CONT 150 mls/hr .[id number] CHARI Administration Ibuprofen 400 mg/ Sodium 104 mls @ 208 mls/hr 01/21/24 23:52 Chloride IVPB Q6H PRN Pain Rated 4-6 Ondansetron HCl 4 mg 01/21/24 23:52 Ondansetron Inj 4 Mg/2 Ml Vial IV PUSH Q4H PRN Nausea Pantoprazole Sodium 40 mg 01/22/24 09:00 01/22/24 08:21 Pantoprazole Sodium Iv 40 Mg Vial IV PUSH 40 mg QAM CHARI Administration Radiology Results: ITS Impressions Abdomen/Pelvis CT 01/21/24 22:47 IMPRESSION: Findings within the minimally distended cecum which may represent pneumatosis. Given the patient's mild acidosis (CO2 of 20) and leukocytosis (19.8), bowel ischemia is high in the differential diagnosis. Typically when these findings are within the cecum in an otherwise healthy patient, it is due to pseudopneumatosis , and strictly a CT finding. However, given patient's acidosis and leukocytosis (as well as fever) early ischemic bowel is of concern. No portal venous air. No filling defects within the superior mesenteric vein or mesenteric arterial system. However, with the finding of ischemic bowel, a thrombus is rarely visualized with CT. These findings were discussed with Farrah Burns at 11:15 on 01/21/2024 Labs Labs: Laboratory Results - last 24 hr 01/21/24 01/21/24 01/21/24 21:48 21:48 21:55 WBC 19.8 H RBC 4.26 Hgb 12.1 Hct 37.1 MCV 87.1 MCH 28.4 MCHC 32.6 RDW 14.0 Plt Count 290 MPV 9.6 Immature Gran % (Auto) 0.5 Neut % (Auto) 85.2 H Lymph % (Auto) 8.3 L [place] % (Auto) 5.7 Eos % (Auto) 0.1 Baso % (Auto) 0.2 Lymph # (Auto) 1.65 [place] # (Auto) 1.1 H Eos # (Auto) 0.0 Baso # (Auto) 0.0 Abs Immat Gran (auto) 0.10 H Absolute Neuts (auto) 16.9 H Absolute Nucleated RBC 0.000 Nucleated RBC % 0.0 Sodium 136 L Potassium 4.2 Chloride 105 Carbon Dioxide 20 L Anion Gap 11 BUN 11 Creatinine 0.50 L Estim Creat Clear Calc 145 Estimated GFR > 60 Glucose 107 Lactic Acid Calcium 9.0 Total Bilirubin 0.6 AST 19 ALT 13 Alkaline Phosphatase 53 C-Reactive Protein 16.9 H Cancelled Total Protein 8.0 Albumin 4.1 Amylase 59 Lipase 48 POC Urine HCG, Qual Negative 01/21/24 01/22/24 22:48 05:39 WBC 14.4 H RBC 3.64 L Hgb 10.4 L Hct 34.0 L MCV 93.4 D MCH 28.6 MCHC 30.6 L RDW 14.0 Plt Count 182 MPV 9.6 Immature Gran % (Auto) 0.6 H Neut % (Auto) 82.4 H Lymph % (Auto) 10.6 L [place] % (Auto) 6.1 Eos % (Auto) 0.1 Baso % (Auto) 0.2 Lymph # (Auto) 1.53 [place] # (Auto) 0.9 H Eos # (Auto) 0.0 Baso # (Auto) 0.0 Abs Immat Gran (auto) 0.09 H Absolute Neuts (auto) 11.9 H Absolute Nucleated RBC 0.000 Nucleated RBC % 0.0 Sodium 139 Potassium 3.5 Chloride 110 H Carbon Dioxide 21 L Anion Gap 8 BUN 8 Creatinine 0.50 L Estim Creat Clear Calc 149 Estimated GFR > 60 Glucose 82 Lactic Acid 0.7 Calcium 7.4 L Total Bilirubin 0.4 AST 14 ALT 12 Alkaline Phosphatase 47 C-Reactive Protein Total Protein 7.0 Albumin 3.4 L Amylase Lipase POC Urine HCG, Qual Quality VTE Prophylaxis VTE prophylaxis: mechanical ordered
--- NOTE | 2024-01-22 11:32 | P.CONGS_ITS ---
Assessment and Plan Assessment and plan (1) Colitis: Code(s): K52.9 - Noninfective gastroenteritis and colitis, unspecified Status: Acute Assessment and Plan: Patient presents with lower abdominal pain and CT evidence of colitis of the cecum. Could be infectious versus ischemic colitis. She did present with a WBC count of 19k and was mildly acidotic. Her WBC count has come down to 14k today and she has no diffuse peritoneal signs on exam. We would recommend to continue with medical management for now with broad-spectrum IV antibiotics, bowel rest, and IV fluids. We will continue to monitor her abdominal exams closely and repeat labs tomorrow. Given her recent travel from [facility] in October, I will additionally order stool studies as well as ova and parasites. She also has a history of IBS and abdominal pain with two colonoscopies when she was a teenager. Inflammatory bowel disease would also be included in the differential. Will order ESR and stool calprotectin for baseline. CRP already ordered and elevated at 16.9. (2) Sepsis: Qualifiers: Sepsis acute organ dysfunction status: without acute organ dysfunction Sepsis type: sepsis due to unspecified organism Qualified Code(s): A41.9 - Sepsis, unspecified organism Code(s): A41.9 - Sepsis, unspecified organism Status: Acute Assessment and Plan: Criteria met on admission with tachycardia, fever, and leukocytosis in the setting of colitis, possible ischemic colitis. WBC trending down. Blood cultures pending. Continue IV antibiotics and IV fluids. Plan I have discussed the patient's case and plan of care with Dr. Thapa. Thank you for allowing us to see the patient in consultation and we will continue to follow along with you. History of Present Illness Consult details Consult date: 01/22/24 Reason for consult: other (Abdominal pain) Requesting physician: Joe Contreras MD Narrative: This is a 29-year-old who presented to the ER with complaint of abdominal pain. She recently moved to the [facility] from [facility] in October to go to [employer] for graduate school. She reports having a history of IBS with a colonoscopy x 2 in the past but cannot recall the results of the test as she was around 17 years of age. Two days ago, she developed lower abdominal pain. This was cramping pain and she had started her menstrual cycle two days prior, so she thought it was related to menstraution. She doesn't typically have cramping with this, so it seemed unusual. She reports associated nausea and multiple episodes of vomiting. Denies any diarrhea or blood in stools. Her pain progressed and she eventually came into the ED that night. Labs showed mild leukocytosis. UA negative for UTI. She appeared stable in the ER and was discharged home. Her pain progressed and she eventually returned to the ER last night. Lab showed her WBC count went up to 19,000, CO2 20. CT scan of the abdomen and pelvis showed colitis of the cecum with possible pneumatosis of the cecum, consistent with ischemic colitis. In the ER the second time, she was febrile and tachycardic. She was admitted in this setting and started on broad-spectrum IV antibiotics. Our service was consulted for the colitis and abdominal pain. She has also received IV fluid resuscitation and her tachycardia has resolved. She is afebrile this morning. She is now seen in consultation. No previous abdominal surgeries. She denies any previous episodes of colitis. Review of Systems Review of Systems: All systems reviewed & are unremarkable except as noted in HPI and below PMFSH Past Medical History Medical History IBS (irritable bowel syndrome) Surgical History Surgical History No pertinent past surgical history Social History Social History Smoking status: Light tobacco smoker Tobacco type: cigarettes Alcohol intake: current Drinks per week: 1 Substance use: never Substance use type: does not use Do You Feel Safe in your Home?: Yes Lack of Transportation: No Lack of Food: Never True Current Housing: I Have Housing Concerned About Future Housing: No Difficulty Paying Gas/Electric Bills: No Difficulty Paying for Meds: No Currently Unemployed: No Education: Bachelor's Degree Difficulty w/ Childcare or Family Care: No Spiritual care concerns: No Meds Home Medications and Allergies Home Medications Medication Instructions Recorded Confirmed Type ibuprofen 800 mg tablet 800 mg PO TID PRN pain #20 tabs 01/21/24 01/22/24 Rx ondansetron 4 mg disintegrating 4 mg PO Q8H #14 tabs 01/21/24 01/22/24 Rx tablet dextroamphetamine-amphetamine 10 10 mg PO DAILY 01/22/24 01/22/24 History mg tablet (Adderall) escitalopram oxalate 10 mg tablet 10 mg PO QHS 01/22/24 01/22/24 History (Lexapro) Allergies Allergy/AdvReac Type Severity Reaction Status Date / Time No Known Allergies Allergy Verified 01/21/24 21:26 Vital Signs Vital Signs - 24 hr 01/21/24 21:30 01/21/24 21:51 01/21/24 23:40 Temperature 100.8 F H Pulse Rate 113 H 112 H 95 Respiratory Rate 14 14 15 Blood Pressure 120/82 112/65 Pulse Oximetry 100 97 99 Oxygen Delivery Room Air 01/21/24 22:43 01/21/24 22:45 01/21/24 23:15 Temperature Pulse Rate 107 H 105 H 97 Respiratory Rate 12 19 16 Blood Pressure Pulse Oximetry 97 98 98 Oxygen Delivery 01/21/24 23:42 01/21/24 23:45 01/22/24 00:00 Temperature Pulse Rate 92 102 H 92 Respiratory Rate 22 H 23 H 13 Blood Pressure 96/53 L Pulse Oximetry 98 99 97 Oxygen Delivery 01/22/24 00:30 01/22/24 00:31 01/22/24 00:55 Temperature 98.5 F Pulse Rate 90 89 Respiratory Rate 14 14 Blood Pressure 101/63 Pulse Oximetry 97 98 Oxygen Delivery 01/22/24 01:52 01/22/24 01:15 01/22/24 04:00 Temperature 98 F 97.7 F Pulse Rate 84 100 Respiratory Rate 16 16 Blood Pressure 100/60 92/60 L Pulse Oximetry 99 96 Oxygen Delivery Room Air 01/22/24 07:29 01/22/24 09:22 01/22/24 08:21 Temperature 99.2 F Pulse Rate 99 Respiratory Rate 19 18 Blood Pressure 107/54 L Pulse Oximetry 94 96 96 Oxygen Delivery Room Air Room Air Exam Const: General: comfortable and no acute distress Nutritional Appearance: average body habitus Orientation/consciousness: patient oriented x3 HENMT: Head: normocephalic and atraumatic Ears: hearing grossly normal bilaterally Mouth: Yes moist mucous membranes Eyes: General: appearance normal, both eyes and all related structures Pup ils: Equal, round and reactive pupils present Neck: Neck: normal visual inspection and full ROM Resp: Effort & Inspection: no respiratory distress Auscultation: clear to auscultation bilaterally Cardio: Rate: regular rate Rhythm: regular rhythm Heart sounds: S1 normal heart sound present and S2 normal heart sound present Peripheral pulses: Peripheral pulses 2+ throughout GI: Inspection: non-distended GI Palp: Yes Soft to palpation, Yes Tenderness to palpation present (GI) (tenderness across the entire lower abdomen), No Guarding due to palpation present (GI), Yes No hepatosplenomegaly present, No Hernia present and No Rebound tenderness present Percussion: Yes normal to percussion Auscultation: normal bowel sounds Skin: General skin exam: normal color Neuro: General: moves all extremities and no focal motor deficits Speech: normal speech Motor exam (neuro): 5/5 motor strength present throughout Extrem: General: normal to inspection and no edema Psych: Mental Status: mental status grossly normal Attitude: cooperative Insight: Good insight present (Psych) Judgement: Good judgement present (Psych) Results Labs 01/22/24 05:39 01/22/24 05:39 Labs: Abnormal lab results 01/21/24 01/22/24 Range/Units 21:48 05:39 WBC 19.8 H 14.4 H (4.5-10.0) K/mm3 RBC 3.64 L (4.2-5.4) M/mm3 Hgb 10.4 L (12.0-15.0) g/dL Hct 34.0 L (37.0-47.0) % MCHC 30.6 L (32-36) g/dl Immature Gran % (Auto) 0.6 H (0-0.5) % Neut % (Auto) 85.2 H 82.4 H (45.5-73.1) % Lymph % (Auto) 8.3 L 10.6 L (18.3-44.2) % [place] # (Auto) 1.1 H 0.9 H (0.1-0.6) K/mm3 Abs Immat Gran (auto) 0.10 H 0.09 H (0.00-0.031) K/mm3 Absolute Neuts (auto) 16.9 H 11.9 H (1.3-6.7) K/mm3 Sodium 136 L (137-145) mmol/L Chloride 110 H (98-107) mmol/L Carbon Dioxide 20 L 21 L (22-30) mmol/L Creatinine 0.50 L 0.50 L (0.7-1.0) mg/dL Calcium 7.4 L (8.4-10.2) mg/dL C-Reactive Protein 16.9 H (<1.0) mg/dL Albumin 3.4 L (3.5-5.1) g/dL Diabetes panel 01/21/24 01/22/24 Range/Units 21:48 05:39 Sodium 136 L 139 (137-145) mmol/L Potassium 4.2 3.5 (3.4-5.0) mmol/L Chloride 105 110 H (98-107) mmol/L Carbon Dioxide 20 L 21 L (22-30) mmol/L BUN 11 8 (7-17) mg/dL Creatinine 0.50 L 0.50 L (0.7-1.0) mg/dL Glucose 107 82 (65-110) mg/dL Calcium 9.0 7.4 L (8.4-10.2) mg/dL AST 19 14 (14-36) U/L ALT 13 12 (6-35) U/L Alkaline Phosphatase 53 47 (38-126) U/L Total Protein 8.0 7.0 (6.3-8.2) g/dL Albumin 4.1 3.4 L (3.5-5.1) g/dL Calcium panel 01/21/24 01/22/24 Range/Units 21:48 05:39 Calcium 9.0 7.4 L (8.4-10.2) mg/dL Albumin 4.1 3.4 L (3.5-5.1) g/dL Pituitary panel 01/21/24 01/22/24 Range/Units 21:48 05:39 Sodium 136 L 139 (137-145) mmol/L Potassium 4.2 3.5 (3.4-5.0) mmol/L Chloride 105 110 H (98-107) mmol/L Carbon Dioxide 20 L 21 L (22-30) mmol/L BUN 11 8 (7-17) mg/dL Creatinine 0.50 L 0.50 L (0.7-1.0) mg/dL Glucose 107 82 (65-110) mg/dL Calcium 9.0 7.4 L (8.4-10.2) mg/dL Adrenal panel 01/21/24 01/22/24 Range/Units 21:48 05:39 Sodium 136 L 139 (137-145) mmol/L Potassium 4.2 3.5 (3.4-5.0) mmol/L Chloride 105 110 H (98-107) mmol/L Carbon Dioxide 20 L 21 L (22-30) mmol/L BUN 11 8 (7-17) mg/dL Creatinine 0.50 L 0.50 L (0.7-1.0) mg/dL Glucose 107 82 (65-110) mg/dL Calcium 9.0 7.4 L (8.4-10.2) mg/dL Total Bilirubin 0.6 0.4 (0.2-1.3) mg/dL AST 19 14 (14-36) U/L ALT 13 12 (6-35) U/L Alkaline Phosphatase 53 47 (38-126) U/L Total Protein 8.0 7.0 (6.3-8.2) g/dL Albumin 4.1 3.4 L (3.5-5.1) g/dL All other labs normal. Imaging Additional studies: ITS Impressions Abdomen/Pelvis CT 01/21/24 22:47 IMPRESSION: Findings within the minimally distended cecum which may represent pneumatosis. Given the patient's mild acidosis (CO2 of 20) and leukocytosis (19.8), bowel ischemia is high in the differential diagnosis. Typically when these findings are within the cecum in an otherwise healthy patient, it is due to pseudopneumatosis , and strictly a CT finding. However, given patient's acidosis and leukocytosis (as well as fever) early ischemic bowel is of concern. No portal venous air. No filling defects within the superior mesenteric vein or mesenteric arterial system. However, with the finding of ischemic bowel, a thrombus is rarely visualized with CT. These findings were discussed with Farrha Burns at 11:15 on 01/21/2024
[2024-01-22] MEDS: ACETAMINOPHEN 325 MG TABLET 650 MG PO ×2 (13:03→23:11)
[2024-01-22 14:08] LABS: Erythrocyte Sedimentation Rate 109 mm/hr (0-20)
[2024-01-23 00:11] VITALS: TEMP 37.8
[2024-01-23] MEDS: SODIUM CHLORIDE 0.9% IV 1,000 ML 150 ML IV CONT (02:48)
[2024-01-23 04:00] VITALS: BP 104/64; PULSE 73; RESP 18; TEMP 36.6; O2SAT 98
[2024-01-23] MEDS: PIPERACILLN/TAZ 3.375GM/NS50ML 3.375 GM/50 ML BAG IVPB ×4 (05:04→23:31)
[2024-01-23 06:19] LABS: Basophils Percent Auto 0.2 % (0.2-1.2); Eosinophils Absolute Auto 0.1 K/mm3 (0-0.3); Eosinophils Percent Auto 0.6 % (0-4.4); Hematocrit 32.1 % (37.0-47.0); Hemoglobin 9.5 g/dL (12.0-15.0); Immature Granulocyte Absolute 0.03 K/mm3 (0.00-0.031); Immature Granulocyte Percent A 0.3 % (0-0.5); Lymphocytes Percent Auto 14.7 % (18.3-44.2); Mean Corpuscular HGB Conc 29.6 g/dl (32-36); Mean Corpuscular Hemoglobin 27.5 pg (26-34); Mean Corpuscular Volume 92.8 fl (80-100); Mean Platelet Volume 9.7 fl (7.4-10.4); Monocytes Absolute Auto 0.6 K/mm3 (0.1-0.6); Monocytes Percent Auto 6.2 % (2.6-8.5); Neutrophils Absolute Auto 6.9 K/mm3 (1.3-6.7); Platelet Count Result 182 k/mm3 (150-375); Red Blood Count 3.46 M/mm3 (4.2-5.4); Red Cell Distribution Width 13.6 % (11.5-14.5); White Blood Count 8.9 K/mm3 (4.5-10.0)
[2024-01-23 06:33] LABS: Anion Gap 11 mmol/L (4-12); Blood Urea Nitrogen 11 mg/dL (7-17); Calcium 7.6 mg/dL (8.4-10.2); Carbon Dioxide 15 mmol/L (22-30); Chloride 112 mmol/L (98-107); Estimated CRCL calculation 181 ml/min; Estimated Glomerular Filt Rate > 60; Glucose 67 mg/dL (65-110); Potassium 3.6 mmol/L (3.4-5.0); Sodium 138 mmol/L (137-145)
[2024-01-23 06:51] LABS: Platelet Estimate Adequate (Adequate); Schistocytes None Seen
[2024-01-23 08:00] VITALS: BP 110/68; PULSE 72; RESP 18; TEMP 36.8; O2SAT 97
[2024-01-23] MEDS: PANTOPRAZOLE SODIUM IV 40 MG VIAL IV PUSH (08:14)
--- NOTE | 2024-01-23 10:19 | P.PNIM_ITS ---
Progress Note: A&P Assessment and Plan (1) Abdominal pain: Code(s): R10.9 - Unspecified abdominal pain Status: Acute Assessment and Plan: IV FLUIDS IV ZOSYN GENERAL SURGERY CONSULTed- no intervention PAIN MANAGEMENT=well controlled wbc improved- back to normal (2) Disorder of cecum: Code(s): K63.9 - Disease of intestine, unspecified Status: Acute Assessment and Plan: 1. (3) Colitis: Code(s): K52.9 - Noninfective gastroenteritis and colitis, unspecified Status: Acute Assessment and Plan: - she is a student here from [facility] - surgery is following: Given her recent travel from [facility] in October, I will additionally order stool studies as well as ova and parasites. She also has a history of IBS and abdominal pain with two colonoscopies when she was a teenager. Inflammatory bowel disease would also be included in the differential. Will order ESR and stool calprotectin for baseline. CRP already ordered and elevated at 16.9. advanced to full liquid- doing well (4) Sepsis: Qualifiers: Sepsis acute organ dysfunction status: without acute organ dysfunction Sepsis type: sepsis due to unspecified organism Qualified Code(s): A41.9 - Sepsis, unspecified organism Code(s): A41.9 - Sepsis, unspecified organism Status: Acute Assessment and Plan: Criteria met - tachycardia, fever, and leukocytosis in the setting of colitis, possible ischemic colitis. WBC trending down. Blood cultures -prelim- no growth Continue IV antibiotics and IV fluids. Time Spent With Patient Time with patient: Greater than 35 minutes Subjective Date/time seen: 01/23/24 10:19 Interval history: right lower quadrant pain Narrative: This is a 29-year-old female with past medical history significant for IBS, patient presents for the 2nd time to the emergency room due to right lower quadrant pain, nausea no vomiting, no diarrhea, had 1 episode of fever, no night sweats, no chills, no rigors. has been her usual state of health prior to this. Preliminary workup was significant for CT of abdomen and pelvis cecal pneumatosis. patient has been admitted for further evaluation,management and treat 01/21- pt is seen and examined. Pain is controlled with medication, no n/v. surgery is following 01/22- full liquid diet- pt is tolerating it well. surgery is following- watch pt overnight- anticipate discharge tomorrow if stable overnight Review of Systems Constitutional: Constitutional: Denies chills Cardiovascular: Cardiovascular: Denies chest pain Respiratory: Respiratory: Denies chest congestion Gastrointestinal: Gastrointestinal: Denies abdominal pain and Denies nausea Comments: improved Exam Narrative: patient is laying in a stretcher Const: General: comfortable, no acute distress, well developed, alert, awake and overweight Nutritional Appearance: overweight Orientation/consciousness: patient oriented x3 Other: well-appearing HENMT: Head: normal to inspection, normocephalic and atraumatic Ears: hearing grossly normal bilaterally Face/Nose/Sinus: normal facial exam Face and sinus: normal facial exam Eyes: General: appearance normal, both eyes and all related structures Pupils: Equal, round and reactive pupils present EOM: EOMs intact bilaterally Neck: Neck: full ROM, no lymphadenopathy and no JVD Thyroid: thyroid normal Lymphatic: no lymphadenopathy noted Resp: Effort & Inspection: normal respiratory effort and able to speak in complete sentences Auscultation: clear to auscultation bilaterally Cardio: Jugular venous distension: no JVD Rate: regular rate Rhythm: regular rhythm Heart sounds: S1 normal heart sound present and S2 normal heart sound present GI: Inspection: normal to inspection and no visible herniation : General: Yes deferred Skin: Rashes: no rashes Wounds: no wounds Neuro: General: patient oriented x3 and CN's II-XI intact bilaterally Cranial nerves: Yes CN's II-XII intact bilaterally and Yes Equal, round and reactive pupils present Cognition (Neuro): normal cognition Speech: normal speech Gait exam (Neuro): Normal gait present Motor exam (neuro): 5/5 motor strength present throughout Extrem: General: normal to inspection, full ROM, no joint enlargement and no pedal edema Objective Data Vital Signs Vital Signs: Vital Signs - 24 hr 01/22/24 12:56 01/22/24 13:03 01/22/24 14:00 Temperature 100.5 F H 100.5 F H 99.2 F Pulse Rate 104 H Respiratory Rate 19 Blood Pressure 108/53 L Pulse Oximetry 95 Oxygen Delivery 01/22/24 14:26 01/22/24 16:27 01/22/24 20:00 Temperature 99.2 F 98.8 F Pulse Rate 96 Respiratory Rate 18 Blood Pressure 102/58 L Pulse Oximetry 97 Oxygen Delivery Room Air 01/22/24 20:00 01/22/24 23:11 01/22/24 23:26 Temperature 97.8 F 100.5 F H 100.5 F H Pulse Rate 80 78 Respiratory Rate 16 18 Blood Pressure 106/63 113/69 Pulse Oximetry 99 98 Oxygen Delivery 01/23/24 00:11 01/23/24 04:00 01/23/24 08:15 Temperature 100.0 F H 97.9 F Pulse Rate 73 Respiratory Rate 18 Blood Pressure 104/64 Pulse Oximetry 98 Oxygen Delivery Room Air Intake/Output Intake/Output: Intake & Output 01/20/24 01/21/24 01/22/24 01/23/24 23:59 23:59 23:59 23:59 Intake Total 1200 4232.5 50 Balance 1200 4232.5 50 Meds/Results Medications: Active Medications Generic Name Dose Route Start Last Admin Trade Name Freq PRN Reason Stop Dose Admin Acetaminophen 650 mg 01/21/24 23:52 01/22/24 23:11 Acetaminophen 325 Mg Tablet PO 650 mg Q4H PRN Administration Mild Pain (1-3) or Fever Hydrocodone Bitart/Acetaminophen 1 tab 01/23/24 09:23 Hydrocodone/Acetaminophen (*Crx) 5-325 Mg Tablet PO Q4H PRN Pain Rated 4-6 Hydromorphone HCl 1 mg 01/22/24 00:51 01/22/24 08:20 Hydromorphone Hcl Inj (*Crx) 1 Mg/Ml Syr IV PUSH 1 mg Q3H PRN Administration Pain Rated 7-10 Piperacillin/Tazobactam/Dextrose 3.375 gm in 50 mls @ 100 mls/hr 01/22/24 06:00 01/23/24 05:34 Zosyn 3.375 Gm/Ns 50 Ml IVPB Infused Q6HR CHARI Infusion Sodium Chloride 1,000 mls @ 90 mls/hr 01/21/24 23:55 01/23/24 02:48 Normal Saline Iv IV CONT 150 mls/hr .Q11H7M CHARI Administration Miscellaneous Information 0 each 01/22/24 00:01 01/22/24 09:54 Dextroamphetamine-Amphetamine [Adderall] = Non Formulary XX 02/21/24 00:00 Not Given CLARIFY CHARI Non-Formulary Medication 10 mg 01/22/24 09:00 Dextroamphetamine-Amphetamine [Adderall] PO 02/21/24 08:59 DAILY [facility] Ondansetron HCl 4 mg 01/21/24 23:52 Ondansetron Inj 4 Mg/2 Ml Vial IV PUSH Q4H PRN Nausea Oxycodone HCl 5 mg 01/23/24 09:23 Oxycodone Hcl (*Crx) 5 Mg Tab Ir PO Q4H PRN Pain Rated 7-10 Pantoprazole Sodium 40 mg 01/24/24 09:00 Pantoprazole 40 Mg [place] [facility] [place] Results: ITS Impressions Abdomen/Pelvis CT 01/21/24 22:47 IMPRESSION: Findings within the minimally distended cecum which may represent pneumatosis. Given the patient's mild acidosis (CO2 of 20) and leukocytosis (19.8), bowel ischemia is high in the differential diagnosis. Typically when these findings are within the cecum in an otherwise healthy patient, it is due to pseudopneumatosis , and strictly a CT finding. However, given patient's acidosis and leukocytosis (as well as fever) early ischemic bowel is of concern. No portal venous air. No filling defects within the superior mesenteric vein or mesenteric arterial system. However, with the finding of ischemic bowel, a thrombus is rarely visualized with CT. These findings were discussed with Farrah Burns at 11:15 on 01/21/2024 Labs Labs: Laboratory Results - last 24 hr 01/22/24 01/23/24 13:02 05:58 WBC 8.9 RBC 3.46 L Hgb 9.5 L Hct 32.1 L MCV 92.8 MCH 27.5 MCHC 29.6 L RDW 13.6 Plt Count 182 MPV 9.7 Immature Gran % (Auto) 0.3 Neut % (Auto) 78.0 H Lymph % (Auto) 14.7 L [place] % (Auto) 6.2 Eos % (Auto) 0.6 Baso % (Auto) 0.2 Lymph # (Auto) 1.30 [place] # (Auto) 0.6 Eos # (Auto) 0.1 Baso # (Auto) 0.0 Abs Immat Gran (auto) 0.03 Absolute Neuts (auto) 6.9 H Absolute Nucleated RBC 0.000 Nucleated RBC % 0.0 Platelet Estimate Adequate Schistocytes None seen ESR 109 H Sodium 138 Potassium 3.6 Chloride 112 H Carbon Dioxide 15 L Anion Gap 11 BUN 11 Creatinine 0.40 L Estim Creat Clear Calc 181 Estimated GFR > 60 Glucose 67 Calcium 7.6 L Quality VTE Prophylaxis VTE prophylaxis: mechanical ordered
[2024-01-23] MEDS: SODIUM CHLORIDE 0.9% IV 1,000 ML 90 ML IV CONT ×2 (10:25→21:57)
--- NOTE | 2024-01-23 11:00 | WPDPN ---
Progress Note: A&P Assessment and Plan (1) Colitis: Code(s): K52.9 - Noninfective gastroenteritis and colitis, unspecified Status: Acute Assessment and Plan: Patient is improving on IV antibiotics. Go ahead advanced her to full liquid diet. Stool studies for ova parasite and stool culture pending. She has a history of having similar type pains she was a teenager in [facility]. She reported had colonoscopies in the past. At this point I do not think ischemic colitis is high in the differential. Infectious colitis or perhaps inflammatory bowel disease given the somewhat recurrent nature abdominal pain is higher consideration will have her seen by GI for consultation. They think workup for inflammatory bowel disease is appropriate then will defer that to them. For now she has no acute surgical abdomen and can start on a full liquid diet. Subjective Date/time seen: 01/23/24 11:00 Interval history: Patient feels better today. Less right lower quadrant abdominal pain. Did not need any IV pain medications overnight or this morning. No nausea. No bowel movements. White blood cell count is decreased to normal at 9000. She does have an elevated sed rate and C-reactive protein. She continues on IV antibiotics. Exam GI: Other: Abdomen is soft and nondistended. Has some mild tenderness to palpation right lower quadrant of the abdomen. No rebound tenderness. No Guarding. Objective Data Vital Signs Vital Signs: Vital Signs - 24 hr 01/22/24 12:56 01/22/24 13:03 01/22/24 14:00 Temperature 38.1 C H 38.1 C H 37.3 C Pulse Rate 104 H Respiratory Rate 19 Blood Pressure 108/53 L Pulse Oximetry 95 Oxygen Delivery 01/22/24 14:26 01/22/24 16:27 01/22/24 20:00 Temperature 37.3 C 37.1 C Pulse Rate 96 Respiratory Rate 18 Blood Pressure 102/58 L Pulse Oximetry 97 Oxygen Delivery Room Air 01/22/24 20:00 01/22/24 23:11 01/22/24 23:26 Temperature 36.6 C 38.1 C H 38.1 C H Pulse Rate 80 78 Respiratory Rate 16 18 Blood Pressure 106/63 113/69 Pulse Oximetry 99 98 Oxygen Delivery 01/23/24 00:11 01/23/24 04:00 01/23/24 08:15 Temperature 37.8 C H 36.6 C Pulse Rate 73 Respiratory Rate 18 Blood Pressure 104/64 Pulse Oximetry 98 Oxygen Delivery Room Air Intake/Output Intake/Output: Intake & Output 01/20/24 01/21/24 01/22/24 01/23/24 23:59 23:59 23:59 23:59 Intake Total 1200 4232.5 50 Balance 1200 4232.5 50 Meds/Results Medications: Active Medications Generic Name Dose Route Start Last Admin Trade Name Freq PRN Reason Stop Dose Admin Acetaminophen 650 mg 01/21/24 23:52 01/22/24 23:11 Acetaminophen 325 Mg Tablet PO 650 mg Q4H PRN Administration Mild Pain (1-3) or Fever Hydrocodone Bitart/Acetaminophen 1 tab 01/23/24 09:23 Hydrocodone/Acetaminophen (*Crx) 5-325 Mg Tablet PO Q4H PRN Pain Rated 4-6 Hydromorphone HCl 1 mg 01/22/24 00:51 01/22/24 08:20 Hydromorphone Hcl Inj (*Crx) 1 Mg/Ml Syr IV PUSH 1 mg Q3H PRN Administration Pain Rated 7-10 Piperacillin/Tazobactam/Dextrose 3.375 gm in 50 mls @ 100 mls/hr 01/22/24 06:00 01/23/24 05:34 Zosyn 3.375 Gm/Ns 50 Ml IVPB Infused Q6HR CHARI Infusion Sodium Chloride 1,000 mls @ 90 mls/hr 01/21/24 23:55 01/23/24 02:48 Normal Saline Iv IV CONT 150 mls/hr .Q11H7M CHARI Administration Miscellaneous Information 0 each 01/22/24 00:01 01/22/24 09:54 Dextroamphetamine-Amphetamine [Adderall] = Non Formulary XX 02/21/24 00:00 Not Given CLARIFY CHARI Non-Formulary Medication 10 mg 01/22/24 09:00 Dextroamphetamine-Amphetamine [Adderall] PO 02/21/24 08:59 DAILY CHARI Ondansetron HCl 4 mg 01/21/24 23:52 Ondansetron Inj 4 Mg/2 Ml Vial IV PUSH Q4H PRN Nausea Oxycodone HCl 5 mg 01/23/24 09:23 Oxycodone Hcl (*Crx) 5 Mg Tab Ir PO Q4H PRN Pain Rated 7-10 Pantoprazole Sodium 40 mg 01/24/24 09:00 Pantoprazole 40 Mg Tablet PO [facility] Radiology Results: ITS Impressions Abdomen/Pelvis CT 01/21/24 22:47 IMPRESSION: Findings within the minimally distended cecum which may represent pneumatosis. Given the patient's mild acidosis (CO2 of 20) and leukocytosis (19.8), bowel ischemia is high in the differential diagnosis. Typically when these findings are within the cecum in an otherwise healthy patient, it is due to pseudopneumatosis , and strictly a CT finding. However, given patient's acidosis and leukocytosis (as well as fever) early ischemic bowel is of concern. No portal venous air. No filling defects within the superior mesenteric vein or mesenteric arterial system. However, with the finding of ischemic bowel, a thrombus is rarely visualized with CT. These findings were discussed with Farrah Burns at 11:15 on 01/21/2024 Labs Labs: Laboratory Results - last 24 hr 01/22/24 01/23/24 13:02 05:58 WBC 8.9 RBC 3.46 L Hgb 9.5 L Hct 32.1 L MCV 92.8 MCH 27.5 MCHC 29.6 L RDW 13.6 Plt Count 182 MPV 9.7 Immature Gran % (Auto) 0.3 Neut % (Auto) 78.0 H Lymph % (Auto) 14.7 L [place]za % (Auto) 6.2 Eos % (Auto) 0.6 Baso % (Auto) 0.2 Lymph # (Auto) 1.30 [place] # (Auto) 0.6 Eos # (Auto) 0.1 Baso # (Auto) 0.0 Abs Immat Gran (auto) 0.03 Absolute Neuts (auto) 6.9 H Absolute Nucleated RBC 0.000 Nucleated RBC % 0.0 Platelet Estimate Adequate Schistocytes None seen ESR 109 H Sodium 138 Potassium 3.6 Chloride 112 H Carbon Dioxide 15 L Anion Gap 11 BUN 11 Creatinine 0.40 L Estim Creat Clear Calc 181 Estimated GFR > 60 Glucose 67 Calcium 7.6 L
[2024-01-23 12:00] VITALS: BP 101/65; PULSE 98; RESP 16; TEMP 37.1; O2SAT 99
[2024-01-23 14:23] LABS: Toxigenic C. Diff NEGATIVE (NEGATIVE)
--- NOTE | 2024-01-23 16:05 | P.CONGI_ITS ---
Assessment and Plan Assessment and plan (1) Colitis: Code(s): K52.9 - Noninfective gastroenteritis and colitis, unspecified Status: Acute Assessment and Plan: new onset of colitis, started on abx pending cultures and stool sample (originally from [facility])- also will check quantiferon liquid diet for now may need colonoscopy but I would defer until colitis is resolved surgery was asked to evaluate patient (2) Sepsis: Qualifiers: Sepsis acute organ dysfunction status: without acute organ dysfunction Sepsis type: sepsis due to unspecified organism Qualified Code(s): A41.9 - Sepsis, unspecified organism Code(s): A41.9 - Sepsis, unspecified organism Status: Acute Assessment and Plan: on abx (3) Disorder of cecum: Code(s): K63.9 - Disease of intestine, unspecified Status: Acute (4) Abdominal pain: Code(s): R10.9 - Unspecified abdominal pain Status: Acute (5) Nausea and vomiting in adult: Code(s): R11.2 - Nausea with vomiting, unspecified Status: Acute (6) Leukocytosis: Code(s): D72.829 - Elevated white blood cell count, unspecified Status: Acute GI Consult Note Consult date/time: 01/23/24 16:05 Reason for consult: colitis HPI: Brad Long is a 29 year old female who recently moved to the [facility] from [facility] in October to go to [employer] for graduate school. She has IBS and had a colonoscopy at age 17. She was in her regular state on health until 2 days ago when she developed lower abdominal pain, cramping in nature that got worse, she thought it was related to menstruation but this pain was much more intense. Then she had nausea and multiple episodes of vomiting, no really diarrhea. ER showed mild leukocytosis. UA negative for UTI and discharge home but pain got worse and returned. New set of labs showed her WBC count went up to 19,000, CO2 20. CT scan of the abdomen and pelvis showed colitis of the cecum with possible pneumatosis of the cecum. Admitted to hospital, cultures pending and started on abx. Review of Systems Constitutional: Constitutional: Reports chills Eyes: Eyes: Denies blurry vision ENT: Reports Normal hearing present Cardiovascular: Cardiovascular: Denies chest pain Respiratory: Respiratory: Denies cough Gastrointestinal: Gastrointestinal: Reports abdominal pain and Reports nausea Genitourinary: Genitourinary: Denies hematuria Musculoskeletal: Musculoskeletal: Denies neck pain Integumentary/Breasts: Skin/Breast: Denies rash Neurologic: Denies Abnormal speech present Psychiatric: Psychiatric: Denies behavioral changes [facility] Past Medical History Medical History (Updated 01/23/24 @ 16:10 by Robson Segal MD) IBS (irritable bowel syndrome) Leukocytosis Nausea and vomiting in adult Surgical History Surgical History No pertinent past surgical history Social History Social History Smoking status: Light tobacco smoker Tobacco type: cigarettes Alcohol intake: current Drinks per week: 1 Substance use: never Substance use type: does not use Do You Feel Safe in your Home?: Yes Lack of Transportation: No Lack of Food: Never True Current Housing: I Have Housing Concerned About Future Housing: No Difficulty Paying Gas/Electric Bills: No Difficulty Paying for Meds: No Currently Unemployed: No Education: Bachelor's Degree Difficulty w/ Childcare or Family Care: No Spiritual care concerns: No Meds Home Medications and Allergies Home Medications Medication Instructions Recorded Confirmed Type ibuprofen 800 mg tablet 800 mg PO TID PRN pain #20 tabs 01/21/24 01/22/24 Rx ondansetron 4 mg disintegrating 4 mg PO Q8H #14 tabs 01/21/24 01/22/24 Rx tablet dextroamphetamine-amphetamine 10 10 mg PO DAILY 01/22/24 01/22/24 History mg tablet (Adderall) escitalopram oxalate 10 mg tablet 10 mg PO QHS 01/22/24 01/22/24 History (Lexapro) Allergies Allergy/AdvReac Type Severity Reaction Status Date / Time No Known Allergies Allergy Verified 01/21/24 21:26 Vital Signs Vital Signs - 24 hr 01/22/24 16:27 01/22/24 20:00 01/22/24 20:00 Temperature 98.8 F 97.8 F Pulse Rate 96 80 Respiratory Rate 18 16 Blood Pressure 102/58 L 106/63 Pulse Oximetry 97 99 Oxygen Delivery Room Air 01/22/24 23:11 01/22/24 23:26 01/23/24 00:11 Temperature 100.5 F H 100.5 F H 100.0 F H Pulse Rate 78 Respiratory Rate 18 Blood Pressure 113/69 Pulse Oximetry 98 Oxygen Delivery 01/23/24 04:00 01/23/24 08:15 01/23/24 08:00 Temperature 97.9 F 98.3 F Pulse Rate 73 72 Respiratory Rate 18 18 Blood Pressure 104/64 110/68 Pulse Oximetry 98 97 Oxygen Delivery Room Air 01/23/24 12:00 Temperature 98.8 F Pulse Rate 98 Respiratory Rate 16 Blood Pressure 101/65 Pulse Oximetry 99 Oxygen Delivery Exam Const: General: no acute distress Nutritional Appearance: average body habi tus Orientation/consciousness: patient oriented x3 HENMT: Head: normocephalic and atraumatic Eyes: General: appearance normal, both eyes and all related structures Neck: Neck: normal visual inspection and full ROM Resp: Effort & Inspection: no respiratory distress Auscultation: clear to auscultation bilaterally Cardio: Rate: regular rate Rhythm: regular rhythm GI: Inspection: non-distended GI Palp: Yes Soft to palpation, Yes Tenderness to palpation present (GI) (tenderness across the entire lower abdomen), No Guarding due to palpation present (GI) and No Rebound tenderness present Percussion: Yes normal to percussion Auscultation: normal bowel sounds Skin: General skin exam: normal color Neuro: General: moves all extremities and no focal motor deficits Speech: normal speech Motor exam (neuro): 5/5 motor strength present throughout Extrem: General: normal to inspection and no edema Psych: Mental Status: mental status grossly normal Attitude: cooperative Insight: Good insight present (Psych) Judgement: Good judgement present (Psych) Results Labs 01/23/24 05:58 01/23/24 05:58 Labs: Short CBC 01/23/24 Range/Units 05:58 WBC 8.9 (4.5-10.0) K/mm3 Hgb 9.5 L (12.0-15.0) g/dL Hct 32.1 L (37.0-47.0) % Plt Count 182 (150-375) k/mm3 BMP 01/23/24 05:58 Sodium 138 Potassium 3.6 Chloride 112 H Carbon Dioxide 15 L BUN 11 Creatinine 0.40 L Glucose 67 Calcium 7.6 L
[2024-01-23 17:20] VITALS: TEMP 38.1
[2024-01-23] MEDS: ACETAMINOPHEN 325 MG TABLET 650 MG PO (17:20)
[2024-01-23 20:00] VITALS: BP 112/76; PULSE 75; RESP 18; TEMP 36.8; O2SAT 100
[2024-01-24] VITALS: BP 94/67; PULSE 84; RESP 14; TEMP 37; O2SAT 96
[2024-01-24 04:18] VITALS: BP 107/59; PULSE 82; RESP 14; TEMP 37.3; O2SAT 99
[2024-01-24] MEDS: PIPERACILLN/TAZ 3.375GM/NS50ML 3.375 GM/50 ML BAG IVPB (05:08)
[2024-01-24 08:11] VITALS: BP 120/74; PULSE 81; RESP 16; TEMP 37; O2SAT 97
[2024-01-24] MEDS: PANTOPRAZOLE 40 MG TABLET PO (08:31)
--- NOTE | 2024-01-24 08:49 | WPDGIPROGNO ---
Progress Note: A&P Assessment and Plan (1) Colitis: Code(s): K52.9 - Noninfective gastroenteritis and colitis, unspecified Status: Acute Assessment and Plan: clinically much better ok to discharge home if she can eat, leukocytosis resolved will discontinue iv fluids can go home with oral abx colonoscopy in 6-8 weeks (2) Sepsis: Qualifiers: Sepsis acute organ dysfunction status: without acute organ dysfunction Sepsis type: sepsis due to unspecified organism Qualified Code(s): A41.9 - Sepsis, unspecified organism Code(s): A41.9 - Sepsis, unspecified organism Status: Acute Assessment and Plan: resolved (3) Disorder of cecum: Code(s): K63.9 - Disease of intestine, unspecified Status: Acute (4) Abdominal pain: Code(s): R10.9 - Unspecified abdominal pain Status: Acute (5) Nausea and vomiting in adult: Code(s): R11.2 - Nausea with vomiting, unspecified Status: Acute (6) Leukocytosis: Code(s): D72.829 - Elevated white blood cell count, unspecified Status: Acute Subjective Date/time seen: 01/24/24 08:49 Interval history: she is doing much better, had loose stool, pain improved asking if she can go home Review of Systems Review of Systems: All systems reviewed & are unremarkable except as noted in HPI and below Exam Const: General: no acute distress Nutritional Appearance: average body habitus Orientation/consciousness: patient oriented x3 HENMT: Head: normocephalic and atraumatic Eyes: General: appearance normal, both eyes and all related structures Neck: Neck: normal visual inspection and full ROM Resp: Effort & Inspection: no respiratory distress Auscultation: clear to auscultation bilaterally Cardio: Rate: regular rate Rhythm: regular rhythm GI: Inspection: non-distended GI Palp: Yes Soft to palpation, Yes Tenderness to palpation present (GI) (mild tenderness in lower abdomen- this has improved), No Guarding due to palpation present (GI) and No Rebound tenderness present Auscultation: normal bowel sounds Skin: General skin exam: normal color Neuro: General: moves all extremities and no focal motor deficits Speech: normal speech Motor exam (neuro): 5/5 motor strength present throughout Extrem: General: normal to inspection and no edema Psych: Mental Status: mental status grossly normal Attitude: cooperative Insight: Good insight present (Psych) Judgement: Good judgement present (Psych) Objective Data Vital Signs Vital Signs: Vital Signs - 24 hr 01/23/24 12:00 01/23/24 17:20 01/23/24 20:00 Temperature 98.8 F 100.6 F H 98.3 F Pulse Rate 98 75 Respiratory Rate 16 18 Blood Pressure 101/65 112/76 Pulse Oximetry 99 100 01/24/24 00:00 01/24/24 04:18 01/24/24 08:11 Temperature 98.6 F 99.1 F 98.6 F Pulse Rate 84 82 81 Respiratory Rate 14 14 16 Blood Pressure 94/67 L 107/59 L 120/74 Pulse Oximetry 96 99 97 Intake/Output Intake/Output: Intake & Output 01/21/24 01/22/24 01/23/24 01/24/24 23:59 23:59 23:59 23:59 Intake Total 1200 4232.5 2750 500 Balance 1200 4232.5 2750 500 Meds/Results Medications: Active Medications Generic Name Dose Route Start Last Admin Trade Name Freq PRN Reason Stop Dose Admin Acetaminophen 650 mg 01/21/24 23:52 01/23/24 17:20 Acetaminophen 325 Mg Tablet PO 650 mg Q4H PRN Administration Mild Pain (1-3) or Fever Hydrocodone Bitart/Acetaminophen 1 tab 01/23/24 09:23 Hydrocodone/Acetaminophen (*Crx) 5-325 Mg Tablet PO Q4H PRN Pain Rated 4-6 Hydromorphone HCl 1 mg 01/22/24 00:51 01/22/24 08:20 Hydromorphone Hcl Inj (*Crx) 1 Mg/Ml Syr IV PUSH 1 mg Q3H PRN Administration Pain Rated 7-10 Piperacillin/Tazobactam/Dextrose 3.375 gm in 50 mls @ 100 mls/hr 01/22/24 06:00 01/24/24 05:38 Zosyn 3.375 Gm/Ns 50 Ml IVPB Infused Q6HR CHARI Infusion Miscellaneous Information 0 each 01/22/24 00:01 01/22/24 09:54 Dextroamphetamine-Amphetamine [Adderall] = Non Formulary XX 02/21/24 00:00 Not Given CLARIFY CHARI Non-Formulary Medication 10 mg 01/22/24 09:00 Dextroamphetamine-Amphetamine [Adderall] PO 02/21/24 08:59 DAILY CHARI Ondansetron HCl 4 mg 01/21/24 23:52 Ondansetron Inj 4 Mg/2 Ml Vial IV PUSH Q4H PRN Nausea Oxycodone HCl 5 mg 01/23/24 09:23 Oxycodone Hcl (*Crx) 5 Mg Tab Ir PO Q4H PRN Pain Rated 7-10 Pantoprazole Sodium 40 mg 01/24/24 09:00 01/24/24 08:31 Pantoprazole 40 Mg Tablet PO 40 mg QAM CHARI Administration Radiology Results: ITS Impressions Abdomen/Pelvis CT 01/21/24 22:47 IMPRESSION: Findings within the minimally distended cecum which may represent pneumatosis. Given the patient's mild acidosis (CO2 of 20) and leukocytosis (19.8), bowel ischemia is high in the differential diagnosis. Typically when these findings are within the cecum in an otherwise healthy patient, it is due to pseudopneumatosis , and strictly a CT finding. However, given patient's acidosis and leukocytosis (as well as fever) early ischemic bowel is of concern. No portal venous air. No filling defects within the superior mesenteric vein or mesenteric arterial system. However, with the finding of ischemic bowel, a thrombus is rarely visualized with CT. These findings were discussed with Farrah Burns at 11:15 on 01/21/2024 Labs Labs: Laboratory Results - last 24 hr 01/23/24 13:17 C. difficile (PCR) Negative
--- NOTE | 2024-01-24 11:05 | PM.PNGS ---
Progress Note: A&P Assessment and Plan (1) Colitis: Code(s): K52.9 - Noninfective gastroenteritis and colitis, unspecified Status: Acute Assessment and Plan: exam benign, danika diet, ok to dc c abx and low fiber diet, agree c colonscopy as outpt Subjective Subjective Date/Time Seen: 01/24/24 11:05 Interval history: feels much better, no pain, danika diet, +bowel fxn Review of Systems Review of Systems: All systems reviewed & are unremarkable except as noted in HPI and below Exam Const: General: cooperative, comfortable and no acute distress Resp: Auscultation: clear to auscultation bilaterally Cardio: Rate: regular rate Rhythm: regular rhythm GI: Inspection: normal to inspection and non-distended GI Palp: Yes abdominal tenderness, Yes Soft to palpation, Yes Tenderness to palpation present (GI), No Guarding due to palpation present (GI) and No Rigid due to palpation Objective Data Vital Signs Vital Signs: Vital Signs - 24 hr 01/23/24 12:00 01/23/24 17:20 01/23/24 20:00 Temperature 37.1 C 38.1 C H 36.8 C Pulse Rate 98 75 Respiratory Rate 16 18 Blood Pressure 101/65 112/76 Pulse Oximetry 99 100 Oxygen Delivery 01/24/24 00:00 01/24/24 04:18 01/24/24 08:11 Temperature 37.0 C 37.3 C 37.0 C Pulse Rate 84 82 81 Respiratory Rate 14 14 16 Blood Pressure 94/67 L 107/59 L 120/74 Pulse Oximetry 96 99 97 Oxygen Delivery 01/24/24 08:00 Temperature Pulse Rate Respiratory Rate Blood Pressure Pulse Oximetry Oxygen Delivery Room Air Intake/Output Intake/Output: Intake & Output 01/21/24 01/22/24 01/23/24 01/24/24 23:59 23:59 23:59 23:59 Intake Total 1200 4232.5 2750 620 Balance 1200 4232.5 2750 620 Meds/Results Medications: Active Medications Generic Name Dose Route Start Last Admin Trade Name Freq PRN Reason Stop Dose Admin Acetaminophen 650 mg 01/21/24 23:52 01/23/24 17:20 Acetaminophen 325 Mg Tablet PO 650 mg Q4H PRN Administration Mild Pain (1-3) or Fever Hydrocodone Bitart/Acetaminophen 1 tab 01/23/24 09:23 Hydrocodone/Acetaminophen (*Crx) 5-325 Mg Tablet PO Q4H PRN Pain Rated 4-6 Hydromorphone HCl 1 mg 01/22/24 00:51 01/22/24 08:20 Hydromorphone Hcl Inj (*Crx) 1 Mg/Ml Syr IV PUSH 1 mg Q3H PRN Administration Pain Rated 7-10 Piperacillin/Tazobactam/Dextrose 3.375 gm in 50 mls @ 100 mls/hr 01/22/24 06:00 01/24/24 05:38 Zosyn 3.375 Gm/Ns 50 Ml IVPB Infused Q6HR CHARI Infusion Miscellaneous Information 0 each 01/22/24 00:01 01/22/24 09:54 Dextroamphetamine-Amphetamine [Adderall] = Non Formulary XX 02/21/24 00:00 Not Given CLARIFY CHARI Non-Formulary Medication 10 mg 01/22/24 09:00 Dextroamphetamine-Amphetamine [Adderall] PO 02/21/24 08:59 DAILY CHARI Ondansetron HCl 4 mg 01/21/24 23:52 Ondansetron Inj 4 Mg/2 Ml Vial IV PUSH Q4H PRN Nausea Oxycodone HCl 5 mg 01/23/24 09:23 Oxycodone Hcl (*Crx) 5 Mg Tab Ir PO Q4H PRN Pain Rated 7-10 Pantoprazole Sodium 40 mg 01/24/24 09:00 01/24/24 08:31 Pantoprazole 40 Mg Tablet PO 40 mg QAM CHARI Administration Radiology Results: ITS Impressions Abdomen/Pelvis CT 01/21/24 22:47 IMPRESSION: Findings within the minimally distended cecum which may represent pneumatosis. Given the patient's mild acidosis (CO2 of 20) and leukocytosis (19.8), bowel ischemia is high in the differential diagnosis. Typically when these findings are within the cecum in an otherwise healthy patient, it is due to pseudopneumatosis , and strictly a CT finding. However, given patient's acidosis and leukocytosis (as well as fever) early ischemic bowel is of concern. No portal venous air. No filling defects within the superior mesenteric vein or mesenteric arterial system. However, with the finding of ischemic bowel, a thrombus is rarely visualized with CT. These findings were discussed with Farrah Burns at 11:15 on 01/21/2024 Labs Labs: Laboratory Results - last 24 hr 01/23/24 13:17 C. difficile (PCR) Negative
--- NOTE | 2024-01-24 13:54 | P.DS_ITS ---
DS: Admitting Diagnosis Discharge Date 01/23 Admitting Diagnosis n/v/abd pain DS: Discharge Diagnosis Discharge Diagnosis (1) Abdominal pain: Code(s): R10.9 - Unspecified abdominal pain Status: Acute (2) Disorder of cecum: Code(s): K63.9 - Disease of intestine, unspecified Status: Acute (3) Colitis: Code(s): K52.9 - Noninfective gastroenteritis and colitis, unspecified Status: Acute (4) Sepsis: Qualifiers: Sepsis acute organ dysfunction status: without acute organ dysfunction Sepsis type: sepsis due to unspecified organism Qualified Code(s): A41.9 - Sepsis, unspecified organism Code(s): A41.9 - Sepsis, unspecified organism Status: Acute DS: Summary Hospital Course Hospital Course: This is a 29-year-old female with past medical history significant for IBS, patient presents for the 2nd time to the emergency room due to right lower quadrant pain, nausea no vomiting, no diarrhea, had 1 episode of fever, no night sweats, no chills, no rigors. has been her usual state of health prior to this. Preliminary workup was significant for CT of abdomen and pelvis cecal pneumatosis. patient has been admitted for further evaluation,management and treat Was seen per GI and surgery- no intervention needed. Stool studies for ova parasite and stool culture pending. Augmentin is sent to be completed. needs colonoscopy in 6-8 weeks Time Spent with Patient Time attestation: Total time spent providing and/or coordinating discharge services: Exam Narrative: patient is laying in a stretcher Const: General: comfortable, no acute distress, well developed, alert, awake and overweight Nutritional Appearance: overweight Orientation/consciousness: patient oriented x3 Other: well-appearing HENMT: Head: normal to inspection, normocephalic and atraumatic Ears: hearing grossly normal bilaterally Face/Nose/Sinus: normal facial exam Face and sinus: normal facial exam Eyes: General: appearance normal, both eyes and all related structures Pupils: Equal, round and reactive pupils present EOM: EOMs intact bilaterally Neck: Neck: full ROM, no lymphadenopathy and no JVD Thyroid: thyroid normal Lymphatic: no lymphadenopathy noted Resp: Effort & Inspection: normal respiratory effort and able to speak in complete sentences Auscultation: clear to auscultation bilaterally Cardio: Jugular venous distension: no JVD Rate: regular rate Rhythm: regular rhythm Heart sounds: S1 normal heart sound present and S2 normal heart sound present GI: Inspection: normal to inspection and no visible herniation : General: Yes deferred Skin: Rashes: no rashes Wounds: no wounds Neuro: General: patient oriented x3 and CN's II-XI intact bilaterally Cranial nerves: Yes CN's II-XII intact bilaterally and Yes Equal, round and reactive pupils present Cognition (Neuro): normal cognition Speech: normal speech Gait exam (Neuro): Normal gait present Motor exam (neuro): 5/5 motor strength present throughout Extrem: General: normal to inspection, full ROM, no joint enlargement and no pedal edema DS: Data Data Completed and Pending Labs on day of discharge: Labs from last 24 hours 01/24/24 01/23/24 06:17 13:17 C. difficile (PCR) Negative TB Test (QFT) Gold Plus Pending TB Test (QFT) Nil Pending TB Test Mitogen - Nil Pending TB Test Ag - Nil 1 Pending TB Test Ag - Nil 2 Pending Preliminary micro results at discharge 01/21/24 22:51 Blood Culture - Preliminary Blood 01/21/24 22:51 Blood Culture - Preliminary Blood Discharge Plan Discharge Consulting providers: Oniel Thapa; Robson Segal Discharging Clinician: Gertrude Hooper Patient Disposition: Home, Self-Care Activity: as tolerated Diet: low fiber Discharge Instructions: You were admitted with abd pain/n/v/d. WE gave you IV antibiotics, IV fluids. Stool studies for ova parasite and stool culture pending. Escherichia coli Shiga Toxins - Pending Salmonella/Shigella Culture - Pending Campylobacter Antigen Assay - Pending As discussed- we will call you if anything abnormal comes back. Please f/u with GI as you may need colonoscopy as an outpt- in 6-8 weeks. I will send you antibiotics home- to [facility]- please take as prescribed. Take probiotics while finishing up your antibiotics. Patient Instructions: Antibiotic Form Stand Alone Forms: General Discharge Information, Work/School Release IP Follow-up/Referrals: PHYSICIAN,FLAT GRINDER OPERATOR [Primary Care Provider] - 2 Weeks Robson Segal MD [Physician] - 1 Week Discharge Medications: New amoxicillin-pot clavulanate [Augmentin] 500-125 mg tablet 1 tablet PO Q12H Qty: 10 0RF Continued dextroamphetamine-amphetamine [Adderall] 10 mg Tablet 10 mg PO DAILY escitalopram oxalate [Lexapro] 10 mg Tablet 10 mg PO QHS ibuprofen 800 mg tablet 800 mg PO TID PRN (Reason: pain) Qty: 20 0RF ondansetron 4 mg tablet,disintegrating 4 mg PO Q8H Qty: 14 0RF Date of admission: 01/23/24 08:44 Primary Care Provider: PHYSICIAN,FLAT GRINDER OPERATOR Admitting Provider: Joe Contreras V. Attending physician on admission: Joe Contreras V. Condition: Improved Quality VTE Prophylaxis VTE prophylaxis: mechanical ordered Hospitalist MIPS Heart Failure (Exclusion) Patient has history of Heart Transplant or Left Ventricular Assistive Device?: No IF YES, STOP HERE Heart Failure (Qualifier) Patient has current or prior documentation of LVEF less than or equal to 40%, or mod/servere depressed LVSF?: No IF NO, STOP HERE
[2024-01-24 14:00] VITALS: BP 123/72; PULSE 95; RESP 16; TEMP 36.9; O2SAT 97
--- NOTE | 2024-01-25 12:47 | PC.NURSE ---
Patient called, she complained that she was diagnosed with sepsis and worried why didn't anyone tell her she had sepsis. They told her she had colitis. I read her H & P & the surgeon's note saying she had colitis. Patient c/o of nausea, asking if she has sepsis then this may explain why she is nauseous. I explained that she may be experiencing nausea because of the new antibiotic that she is taking. I encouraged her to take the antibiotic with food & no dairy. Pt said she was told in the ER that she had a pulmonary effusion. I read her x-ray & and EKG that showed an inferior UT of indeterminate age. Her ER discharge instructions said she should take deep breaths & use her incentive spirometer. I asked her if she ad an incentive spriometer, she said, no. I told her if she would like to come to the hospital, I would provide one for her & teach her how to use it. Patient said, So what should I look for if I need to come back to the hospital? I told her to return if she has chest pain, has a fever >100, uncontrollable vomiting. I encouraged her to call the physician listed on her discharge instructions first thing Friday, & request her medical records with labs and results from [place] to be transferred to that physician.
--- NOTE | 2024-01-27 08:17 | PC.NURSE ---
Stool cx is negative.
[2024-01-29 13:26] LABS: Trichrome Ova and Parasites STATUS: FINAL
[2024-01-29 19:14] LABS: NIL 0.05 IU/mL; Quantiferon TB Plus, 1T NEGATIVE (NEGATIVE); TB1-NIL <0.00 IU/mL
== END 2024-01-24 14:35 | disposition home or self-care (01) | DRG 872 ==
LOC: ANHED 01-22 00:45 → ANH3MED 01-22 00:48
PROVIDERS: Family Medicine; Internal Medicine Gastroenterology; Nurse Practitioner Family; Admitting Provider Internal Medicine; Emergency Provider Physician Assistant; Visit Provider Nurse Practitioner
DX: A41.9 Sepsis, unspecified organism (principal); K52.9 Noninfective gastroenteritis and colitis, unspecified; K63.89 Other specified diseases of intestine; Z72.0 Tobacco use
CPT/HCPCS: 36415; 74177; 80048; 80053; 81001; 81025; 82150; 83605; 83690; 83993; 85025; 85652; 86140; 86480; 87040; 87045; 87086; 87177; 87209; 87269; 87427; 87449; 87493; 96361; 96365; 96367; 96374; 96375; 99284; 99285; A9270; G0378; J1171; J1741; J1885; J2405; J2470; J2543; J7030; Q9967

== ENCOUNTER 2024-01-25 01:52 | Emergency (ER) | payer OTHER, SELFPAY ==
[2024-01-25] VITALS (19 sets, daily range): BP systolic 124–128; BP diastolic 80–95; PULSE 65–103; RESP 14–30; TEMP 36.8; O2SAT 91–98
--- NOTE | ~2024-01-25 | XR_ITS ---
Portable chest x-ray Comparison: None Clinical History: Shortness of breath Findings: Ogxki-eb-gokhrvew right pleural effusion present. Probable minimal left pleural effusion. Possible minimal central congestive change. Cardiomediastinal silhouette is stable. Bones and soft t issues are unremarkable. Impression: Zfihw-sz-rhzmoksi right pleural effusion and minimal left pleural effusion. Possible mild central interstitial change. Reviewed, dictated and finalized at location . [employer] Impression: Wjnop-nx-[id number] right pleural effusion and minimal left pleural effusion. Possible mild central interstitial change.
--- NOTE | 2024-01-25 02:46 | ED.SOB ---
HPI - SOB/Dyspnea General Chief Complaint: Shortness of Breath/Dyspnea Stated Complaint: dyspnea Time Seen by Provider: 01/25/24 02:42 Source: patient and EMS Mode of arrival: EMS Limitations: no limitations History of Present Illness HPI Narrative: Patient presents with complaint of shortness of breath, particularly when supine that started this afternoon. She states it feels like it takes effort to breathe. She usually sleeps on 1 pillow but had to use 3 pillows to sit upright to improve her symptoms. She initially denied chest pain but she does state that it hurts underneath her left breast. Patient was recently hospitalized for 4 days at [place] for colitis and discharged today. She denies any fevers. She has been having a headache when she moves her head. She notes that she coughs but only when she is of breath. Denies any edema including unilateral or bilateral. No hemoptysis, prior PE or DVT. No recent surgery or trauma. Not on exogenous hormones including no control. Related Data Home Medications Medication Instructions Recorded Confirmed dextroamphetamine-amphetamine 10 10 mg PO DAILY 01/22/24 01/22/24 mg tablet (Adderall) escitalopram oxalate 10 mg tablet 10 mg PO QHS 01/22/24 01/22/24 (Lexapro) Allergies Allergy/AdvReac Type Severity Reaction Status Date / Time No Known Allergies Allergy Verified 01/21/24 21:26 [facility] Past Medical History Medical History Colitis IBS (irritable bowel syndrome) Leukocytosis Nausea and vomiting in adult Surgical History Surgical History No pertinent past surgical history Social History Social History Smoking status: Light tobacco smoker Tobacco type: cigarettes Alcohol intake: current Drinks per week: 1 Substance use: never Substance use type: does not use Do You Feel Safe in your Home?: Yes Lack of Transportation: No Lack of Food: Never True Current Housing: I Have Housing Concerned About Future Housing: No Difficulty Paying Gas/Electric Bills: No Difficulty Paying for Meds: No Currently Unemployed: No Education: Bachelor's Degree Difficulty w/ Childcare or Family Care: No Spiritual care concerns: No Exam Narrative: GENERAL: well-nourished, in no acute distress ; she looks non-toxic although unwell. HEAD: Normocephalic, atraumatic. EYES: Non injected, non icteric ENT: Nares clear, no rhinorrhea or epistaxis. NECK: Supple. CHEST: Speaking in full sentences. No respiratory distress. Lungs clear to auscultation except diminished at the bases. HEART: Regular rate and rhythm. Normal S1 and S2 with No appreciable murmur. ABDOMEN: Soft, nondistended. EXTREMITIES: Normal range of motion. No lower extremity edema. SKIN: Warm, dry, no rash; in particular, no rash on left chest in the area around or under her under left breast NEURO: No focal deficits. Alert and oriented x3. PSYCH: Normal mood and affect. Course Vital Signs Vital signs: Vital Signs Temperature 98.3 F 01/25/24 01:55 Pulse Rate 88 01/25/24 01:55 Respiratory Rate 16 01/25/24 01:55 Blood Pressure 124/95 H 01/25/24 01:55 Pulse Oximetry 98 01/25/24 01:55 Oxygen Delivery Room Air 01/25/24 01:55 Temperature 98.3 F 01/25/24 01:55 Pulse Rate 76 01/25/24 06:42 Respiratory Rate 15 01/25/24 06:42 Blood Pressure 124/80 01/25/24 06:42 Pulse Oximetry 98 01/25/24 06:42 Oxygen Delivery Room Air 01/25/24 01:55 MDM - SOB/Dyspnea MDM Narrative Medical decision making narrative: Patient presents with shortness of breath starting today. In the emergency department she is afebrile vital signs notable for elevation diastolic blood pressure. PERC Rule Age greater than or equal to 50:0 HR greater than or equal to 100:0 O2 sat room air <95%:0 Unilateral leg swellin Hemoptysis:0 Recent surgery or trauma less than 4 wks ago requiring tx with general anesthesia:0 Prior PE or DVT:0 Hormone use (OCP, HRT or estrogenic hormone use in M/F patients): 0 For this reason, will not pursue further workup for pulmonary embolism. Patient is complaining of (3 pillow) orthopnea and paroxysmal nocturnal dyspnea with shortness of breath. This addition to the findings on the chest x-ray since acute heart failure with effusion. Her BNP is elevated. She is given a dose of Lasix. On reassessment she states she is feeling much better. She does look improved and has been seen ambulating to the restroom without issue. Discuss the possibility of admission but patient declines. She states she has assignments that need to be completed. I stressed the need for follow-up and encouraged her to return with any new or unmanaged or recurring symptoms. Differential Diagnosis Differential diagnosis: Likely congestive heart failure, community acquired pneumonia, pulmonary embolism (considered) and other (myocarditis; pancreatitis causing effusion, etc.; herpes zoster) Lab Data Attestation: I reviewed the patient's lab results. Lab results narrative: Normocytic anemia, stable from previous 01/25/24 02:59 01/25/24 02:59 Labs: Lab Results 01/25/24 Range/Units 02:59 WBC 5.9 (4.5-10.0) K/mm3 RBC 3.49 L (4.2-5.4) M/mm3 Hgb 9.7 L (12.0-15.0) g/dL Hct 30.5 L (37.0-47.0) % MCV 87.4 D (80-100) fl MCH 27.8 (26-34) pg MCHC 31.8 L (32-36) g/dl RDW 13.8 (11.5-14.5) % Plt Count 236 (150-375) k/mm3 MPV 9.6 (7.4-10.4) fl Immature Gran % (Auto) 0.3 (0-0.5) % Neut % (Auto) 59.7 (45.5-73.1) % Lymph % (Auto) 27.2 (18.3-44.2) % [place] % (Auto) 9.2 H (2.6-8.5) % Eos % (Auto) 3.1 (0-4.4) % Baso % (Auto) 0.5 (0.2-1.2) % Lymph # (Auto) 1.60 (0.9-3.2) K/mm3 [place] # (Auto) 0.5 (0.1-0.6) K/mm3 Eos # (Auto) 0.2 (0-0.3) K/mm3 Baso # (Auto) 0.0 (0.0-0.1) K/mm3 Abs Immat Gran (auto) 0.02 (0.00-0.031) K/mm3 Absolute Neuts (auto) 3.5 (1.3-6.7) K/mm3 Absolute Nucleated RBC 0.000 (0.0-0.012) K/mm3 Nucleated RBC % 0.0 (0.0-0.2) % Sodium 140 (137-145) mmol/L Potassium 3.6 (3.4-5.0) mmol/L Chloride 110 H (98-107) mmol/L Carbon Dioxide 24 (22-30) mmol/L Anion Gap 6 (4-12) mmol/L BUN 5 L D (7-17) mg/dL Creatinine 0.50 L (0.7-1.0) mg/dL Estim Creat Clear Calc 170 ml/min Estimated GFR > 60 (59 - ) Glucose 110 (65-110) mg/dL Calcium 8.2 L (8.4-10.2) mg/dL Total Bilirubin 0.3 (0.2-1.3) mg/dL AST 15 (14-36) U/L ALT 12 (6-35) U/L Alkaline Phosphatase 45 (38-126) U/L Troponin I < 0.012 (0.000-0.034) ng/mL NT-Pro-B Natriuret Pep 833 H (19.9-100) pg/mL Total Protein 7.0 (6.3-8.2) g/dL Albumin 3.4 L (3.5-5.1) g/dL Lipase 73 (23-300) U/L Influenza A (RT-PCR) Negative (Negative) Influenza B (RT-PCR) Negative (Negative) RSV (RT-PCR) Negative (Negative) SARS-CoV-2 RNA (RT-PCR) Negative (Negative) Imaging Data Attestation: I personally reviewed and interpreted this imaging study as follows: My impression: Concerning loss of costophrenic angle on the right in my independent interpretation of chest x-ray concerning for pleural effusion Radiologist's impression: CXR 1 view STAT RAD: Bilateral pleural effusions ECG Data EKG #1: Attestation: I personally reviewed and interpreted this ECG as follows: ECG completion date: 01/25/24 ECG completion time: 03:03 Interpretation: Normal sinus rhythm at a rate of 81 beats per minute. No significant [place] depressions. T-wave inversion in lead 3 but otherwise somewhat upright in AVF and definitely upright in contiguous inferior lead 2. Patient also has T-wave inversion in V2 and V3. Discharge Plan Discharge Clinical Impression: Bilateral pleural effusion, Normocytic anemia Patient Disposition: Home, Self-Care Condition: Stable Instructions: Antibiotic Form, Pleural Effusion (DC), Anemia (ED) Additional Instructions: Continue taking your medications as prescribed including what you were discharged on. It is safe to take acetaminophen/Tylenol (maximum 4000 mg per day) with NSAIDs such as Motrin/ibuprofen. Continue to breathe deeply and the incentive spirometer can help remind you of this. It is important that you follow-up with primary care physician. If you do not have 1 the name of the doctor is listed below. Return to the emergency department with any new or worsened or unmanaged symptoms Prescriptions: New acetaminophen 500 mg capsule 1,000 mg PO Q6H PRN (Reason: pain) Qty: 30 0RF ibuprofen 600 mg tablet 600 mg PO TID PRN (Reason: pain) Qty: 30 0RF No Action dextroamphetamine-amphetamine [Adderall] 10 mg Tablet 10 mg PO DAILY escitalopram oxalate [Lexapro] 10 mg Tablet 10 mg PO QHS amoxicillin-pot clavulanate [Augmentin] 500-125 mg tablet 1 tablet PO Q12H Qty: 10 0RF ibuprofen 800 mg tablet 800 mg PO TID PRN (Reason: pain) Qty: 20 0RF ondansetron 4 mg tablet,disintegrating 4 mg PO Q8H Qty: 14 0RF Follow-up/Referrals: PHYSICIAN,MASONRY CONTRACTOR [Primary Care Provider] - Francisco Javier Nunez MD [Physician] - (family practice ) Stand Alone Forms: Work/School Release IP Time of Disposition: 06:23
--- NOTE | 2024-01-25 02:55 | ECG_ITS ---
Test Date: 2024-01-25 03:03:49 Measurements Intervals [place] Rate: 81 P: -3 CT: 100 QRS: 30 QRSD: 98 T: -3 QT: 368 QTc: 429 Interpretive Statements SINUS RHYTHM WITH SHORT CT INTERVAL CONSIDER INFERIOR INFARCT, AGE INDETERMINATE MODERATE T-WAVE ABNORMALITY, CONSIDER ANTERIOR ISCHEMIA ABNORMAL ECG No previous ECG available for comparison Electronically Signed On 01-25-2024 07:02:24 TARP REPAIRER by Cristiano De La O D.O.
[2024-01-25 03:09] LABS: Basophils Percent Auto 0.5 % (0.2-1.2); Eosinophils Absolute Auto 0.2 K/mm3 (0-0.3); Eosinophils Percent Auto 3.1 % (0-4.4); Hematocrit 30.5 % (37.0-47.0); Hemoglobin 9.7 g/dL (12.0-15.0); Immature Granulocyte Absolute 0.02 K/mm3 (0.00-0.031); Immature Granulocyte Percent A 0.3 % (0-0.5); Lymphocytes Percent Auto 27.2 % (18.3-44.2); Mean Corpuscular HGB Conc 31.8 g/dl (32-36); Mean Corpuscular Hemoglobin 27.8 pg (26-34); Mean Corpuscular Volume 87.4 fl (80-100); Mean Platelet Volume 9.6 fl (7.4-10.4); Monocytes Absolute Auto 0.5 K/mm3 (0.1-0.6); Monocytes Percent Auto 9.2 % (2.6-8.5); Neutrophils Absolute Auto 3.5 K/mm3 (1.3-6.7); Neutrophils Percent Auto 59.7 % (45.5-73.1); Platelet Count Result 236 k/mm3 (150-375); Red Blood Count 3.49 M/mm3 (4.2-5.4); Red Cell Distribution Width 13.8 % (11.5-14.5); White Blood Count 5.9 K/mm3 (4.5-10.0)
[2024-01-25 03:18] LABS: Alanine Aminotransferase 12 U/L (6-35); Albumin Level 3.4 g/dL (3.5-5.1); Alkaline Phosphatase 45 U/L (38-126); Anion Gap 6 mmol/L (4-12); Aspartate Amino Transferase 15 U/L (14-36); Bilirubin,Total 0.3 mg/dL (0.2-1.3); Blood Urea Nitrogen 5 mg/dL (7-17); Calcium 8.2 mg/dL (8.4-10.2); Carbon Dioxide 24 mmol/L (22-30); Chloride 110 mmol/L (98-107); Estimated CRCL calculation 170 ml/min; Estimated Glomerular Filt Rate > 60; Glucose 110 mg/dL (65-110); Potassium 3.6 mmol/L (3.4-5.0); Sodium 140 mmol/L (137-145)
[2024-01-25 03:30] LABS: NT Pro B Type Natriuretic Pept 833 pg/mL (19.9-100); Troponin I < 0.012 ng/mL (0.000-0.034)
[2024-01-25 03:45] LABS: Influenza A QL RT-PCR Negative (Negative); Influenza B QL RT-PCR Negative (Negative); RSV RNA, RT-PCR Negative (Negative); SARS-CoV-2 RNA PCR Negative (Negative)
[2024-01-25] MEDS: MORPHINE SULFATE (*CRX) 4 MG/ML INJ IV PUSH (04:44)
[2024-01-25] MEDS: FUROSEMIDE INJ 40 MG/4 ML VIAL 20 MG IV PUSH (05:07)
[2024-01-25 05:37] LABS: Lipase 73 U/L (23-300)
== END 2024-01-25 06:42 | disposition home or self-care (01) ==
PROVIDERS: Emergency Provider Student in an Organized Health Care Education/Training Program
DX: J90 Pleural effusion, not elsewhere classified (principal); D64.9 Anemia, unspecified; Z20.822 Contact with and (suspected) exposure to COVID-19
CPT/HCPCS: 36415; 71045; 80053; 83690; 83880; 84484; 85025; 87637; 93005; 96374; 96375; 99284; J1940; J2270

== ENCOUNTER 2024-01-26 01:03 | Observation (INO) | payer OTHER, SELFPAY ==
[2024-01-26] VITALS (12 sets, daily range): BP systolic 102–122; BP diastolic 57–76; PULSE 55–115; RESP 16–20; TEMP 36.3–36.9; O2SAT 95–100; BMI 34.9
--- NOTE | ~2024-01-26 | CT_ITS ---
Clinical Indication: Chest pain CT Scan of the Chest with Contrast: Technique: Contiguous sections were acquired throughout the chest after intravenous administration of 100 cc of Omnipaque 350. Dose reduction technique was used on this scan by utilizing automated expos ure control and iterative reconstruction technique. The dose-length product (DLP) was 406.28 mGy-cm. Findings: There is no evidence of any significant mediastinal, hilar or axillary lymphadenopathy. There is no f illing defect in the pulmonary arterial tree to suggest pulmonary embolus. There is no evidence of ao rtic dissection or aneurysm. No pericardial effusion. Moderate bilateral pleural effusions are present, with bibasilar atelectatic change.. Images through the upper abdomen reveal no abnormalities. Impression: No evidence of pulmonary embolus, aortic dissection, or aortic aneurysm. Moderate bilateral pleural effusions with bibasilar atelectatic change. Reviewed, dictated and finalized at [facility]. EKEEPER/LAUNDRY ASSISTANT Impression: No evidence of pulmonary embolus, aortic dissection, or aortic aneurysm. Moderate bilateral pleural effusions with bibasilar atelectatic change.
--- NOTE | ~2024-01-26 | XR_ITS ---
Portable chest x-ray Comparison: 01/26/2024 Clinical History: Pleural effusion Findings: Small left pleural effusion present with probable left basilar atelectatic change. Possibl e minimal right pleural effusion. There is focal airspace opacity in the right suprahilar region, non specific. Cardiomediastinal silhouette is stable. Bones and soft tissues are unremarkable. Impression: Small left pleural effusion and possible minimal right pleural effusion, with left basilar atelectati c change. Focal opacity in the right suprahilar region, possibly prominent vessel. Attention on follow-up advis ed. Reviewed, dictated and finalized at location M. . MANAGER Impression: Small left pleural effusion and possible minimal right pleural effusion, with l eft basilar atelectatic change. Focal opacity in the right suprahilar region, possibly prominent vessel. Attent ion on follow-up advised.
--- NOTE | ~2024-01-26 | XR_ITS ---
Portable chest x-ray Comparison: 01/25/2024 Clinical History: Shortness of breath Findings: Small bilateral pleural effusions are present with mild bibasilar pulmonary edema/atelecta sis. Findings are similar to prior exam. Cardiomediastinal silhouette is stable. Bones and soft tiss ues are unremarkable. Impression: Small bilateral pleural effusions with mild bibasilar pulmonary edema versus atelectasis. Findings ar e similar to prior exam. Reviewed, dictated and finalized at location M. Y DRIER OPERATOR Impression: Small bilateral pleural effusions with mild bibasilar pulmonary edema versus at electasis. Findings are similar to prior exam.
--- NOTE | 2024-01-26 01:48 | ECG_ITS ---
Test Date: 2024-01-26 01:59:17 Measurements Intervals [place] Rate: 70 P: -6 DE: 108 QRS: 32 QRSD: 91 T: 6 QT: 392 QTc: 424 Interpretive Statements SINUS RHYTHM WITH SHORT DE INTERVAL CONSIDER INFERIOR INFARCT, AGE INDETERMINATE ST DEVIATION AND MODERATE T-WAVE ABNORMALITY, CONSIDER ANTERIOR ISCHEMIA ABNORMAL ECG Compared to ECG 01/25/2024 03:03:49 NO SIGNIFICANT CHANGE Electronically Signed On 01-26-2024 06:47:15 ERP BUSINESS ANALYST by Cristiano De La O D.O.
--- NOTE | 2024-01-26 01:48 | ED.NAVMDI ---
HPI - Nausea/Vomiting/Diarrhea General Chief complaint: Nausea/Vomiting/Diarrhea Stated complaint: SOB/CP/nausea Time Seen by Provider: 01/26/24 01:32 Source: patient Mode of arrival: ambulatory Limitations: no limitations History of Present Illness HPI Narrative: Patient presents with shortness of breath is worse lying flat, chest pain nausea, and episode of nonbloody emesis. Patient was recently hospitalized for colitis and had presented to the emergency department overnight last night was found To have pleural effusions. she had desired to be discharged at that time and had been feeling better but her symptoms have recurred and vomiting. She also has a headache particularly she coughs. No fevers. The pain continues to be along her left chest and under her left breast but now she states that it also hurts in the middle of her chest. She states she only coughs when she gets of breath. She was concern for sepsis because she started to review her discharge paperwork from hospitalization. She called the hospital to discuss this given her concern, she states that a nurse on phone had told her that she had signs of heart infarction based on her EKG(s) from last night and she should see a bioinformatics support specialist. Related Data Home Medications Medication Instructions Recorded Confirmed dextroamphetamine-amphetamine 10 10 mg PO DAILY 01/22/24 01/26/24 mg tablet (Adderall) escitalopram oxalate 10 mg tablet 10 mg PO QHS 01/22/24 01/26/24 (Lexapro) Allergies Allergy/AdvReac Type Severity Reaction Status Date / Time No Known Allergies Allergy Verified 01/26/24 06:51 [facility] Past Medical History Medical History Colitis IBS (irritable bowel syndrome) Leukocytosis Nausea and vomiting in adult Surgical History Surgical History No pertinent past surgical history Social History Social History Smoking status: Current some day smoker Tobacco type: cigarettes Additional smoking assessment comments: pt states she is a very light smoker for the last 2 months Alcohol intake: current Drinks per week: 1 Substance use: never Substance use type: does not use Do You Feel Safe in your Home?: Yes Lack of Transportation: No Lack of Food: Never True Current Housing: I Have Housing Concerned About Future Housing: No Difficulty Paying Gas/Electric Bills: No Difficulty Paying for Meds: No Currently Unemployed: No Education: Bachelor's Degree Difficulty w/ Childcare or Family Care: No Spiritual care concerns: No Exam Narrative: GENERAL: in no acute distress Although appears tired. HEAD: Normocephalic, atraumatic. EYES: Non injected, non icteric ENT: Nares clear, no rhinorrhea or epistaxis. NECK: Supple. CHEST: Speaking in full sentences. No respiratory distress. Lung sounds diminished at the bases bilaterally. HEART: Regular rate and rhythm. . ABDOMEN: Soft, nondistended. EXTREMITIES: Normal range of motion. No lower extremity edema. SKIN: Warm, dry, no rash. NEURO: No focal deficits. Alert and oriented x3. PSYCH: Normal mood and affect. Course Vital Signs Vital signs: Vital Signs Pulse Oximetry 97 01/26/24 01:14 Oxygen Delivery Room Air 01/26/24 01:14 Temperature 98.1 F 01/26/24 14:55 Pulse Rate 67 01/26/24 16:00 Respiratory Rate 16 01/26/24 14:55 Blood Pressure 107/76 01/26/24 14:55 Pulse Oximetry 95 01/26/24 14:55 Oxygen Delivery Room Air 01/26/24 08:00 MDM - Nausea/Vomiting/Diarrhea MDM Narrative Medical decision making narrative: patient presents with shortness of breath, orthopnea chest pain, nausea, and an episode of nonbloody emesis. In the emergency department they are afebrile with vital signs within normal limits. I had evaluated patient last night was concerned about acute onset heart failure given her description orthopnea, paroxysmal nocturnal dyspnea, and an elevated BNP combined with the pleural effusions seen on chest x-ray. had discussed and offered admission but patient had declined as she had been feeling better in the emergency department and noted that she had to go home and do some assignments. Given the T-wave inversions on initial EKG tonight, I did have a posterior EKG performed. ProBNP is 470 which is slightly elevated and concerning for a patient her age, although improved from value 24 hours ago. Mild hypokalemia. Will replete. I believe patient requires admission to the hospital for further monitoring and a diagnostic and therapeutic thoracentesis. Discussed with on-call hospitalist Dr Contreras who concurs. Order put in for ultrasound-guided thoracentesis as well as the associated labs. Dr. Contreras also recommended getting a repeat chest x-ray to compare to the previous even though the CT scan from today. We did discuss that on her interpretation she was concerned for pneumonia however both stat rad and in-house radiology read CT imaging as atelectasis rather than pneumonia and patient is without a leukocytosis. For this reason, will defer administering antibiotics. Recommending telemetry. Differential Diagnosis Differential diagnosis: Likely other ( ACS, exudate if versus transudative pleural effusion, acute heart failure; TB) Lab Data Attestation: I reviewed the patient's lab results. Lab results narrative: Normocytic anemia, stable from previous 01/26/24 08:01 01/26/24 02:05 Labs: Lab Results 01/26/24 01/26/24 01/26/24 Range/Units 02:05 02:05 03:07 WBC 6.0 (4.5-10.0) K/mm3 RBC 3.44 L (4.2-5.4) M/mm3 Hgb 9.6 L (12.0-15.0) g/dL Hct 30.1 L (37.0-47.0) % MCV 87.5 (80-100) fl MCH 27.9 (26-34) pg MCHC 31.9 L (32-36) g/dl RDW 13.7 (11.5-14.5) % Plt Count 252 (150-375) k/mm3 MPV 9.5 (7.4-10.4) fl Immature Gran % (Auto) 0.3 (0-0.5) % Neut % (Auto) 62.6 (45.5-73.1) % Lymph % (Auto) 25.9 (18.3-44.2) % [place] % (Auto) 8.2 (2.6-8.5) % Eos % (Auto) 2.7 (0-4.4) % Baso % (Auto) 0.3 (0.2-1.2) % Lymph # (Auto) 1.55 (0.9-3.2) K/mm3 [place] # (Auto) 0.5 (0.1-0.6) K/mm3 Eos # (Auto) 0.2 (0-0.3) K/mm3 Baso # (Auto) 0.0 (0.0-0.1) K/mm3 Abs Immat Gran (auto) 0.02 (0.00-0.031) K/mm3 Absolute Neuts (auto) 3.8 (1.3-6.7) K/mm3 Absolute Nucleated RBC 0.000 (0.0-0.012) K/mm3 Nucleated RBC % 0.0 (0.0-0.2) % D-Dimer 3.75 H (<0.48) ug/mL Sodium 137 (137-145) mmol/L Potassium 3.2 L (3.4-5.0) mmol/L Chloride 104 (98-107) mmol/L Carbon Dioxide 28 (22-30) mmol/L Anion Gap 5 (4-12) mmol/L BUN 6 L (7-17) mg/dL Creatinine 0.50 L (0.7-1.0) mg/dL Estim Creat Clear Calc Not Reportable Estimated GFR > 60 (59 - ) Glucose 98 (65-110) mg/dL Calcium 8.5 (8.4-10.2) mg/dL Magnesium 1.9 (1.6-2.3) mg/dL Total Bilirubin 0.4 (0.2-1.3) mg/dL AST 16 (14-36) U/L ALT 12 (6-35) U/L Alkaline Phosphatase 47 (38-126) U/L Lactate Dehydrogenase (120-246) U/L Troponin I < 0.012 Cancelled (0.000-0.034) ng/mL NT-Pro-B Natriuret Pep 470 H (19.9-100) pg/mL Total Protein 7.0 (6.3-8.2) g/dL Albumin 3.5 (3.5-5.1) g/dL POC Urine HCG, Qual Negative (Negative) 01/26/24 Range/Units 05:42 WBC (4.5-10.0) K/mm3 RBC (4.2-5.4) M/mm3 Hgb (12.0-15.0) g/dL Hct (37.0-47.0) % MCV (80-100) fl MCH (26-34) pg MCHC (32-36) g/dl RDW (11.5-14.5) % Plt Count (150-375) k/mm3 MPV (7.4-10.4) fl Immature Gran % (Auto) (0-0.5) % Neut % (Auto) (45.5-73.1) % Lymph % (Auto) (18.3-44.2) % [place] % (Auto) (2.6-8.5) % Eos % (Auto) (0-4.4) % Baso % (Auto) (0.2-1.2) % Lymph # (Auto) (0.9-3.2) K/mm3 [place] # (Auto) (0.1-0.6) K/mm3 Eos # (Auto) (0-0.3) K/mm3 Baso # (Auto) (0.0-0.1) K/mm3 Abs Immat Gran (auto) (0.00-0.031) K/mm3 Absolute Neuts (auto) (1.3-6.7) K/mm3 Absolute Nucleated RBC (0.0-0.012) K/mm3 Nucleated RBC % (0.0-0.2) % D-Dimer (<0.48) ug/mL Sodium (137-145) mmol/L Potassium (3.4-5.0) mmol/L Chloride (98-107) mmol/L Carbon Dioxide (22-30) mmol/L Anion Gap (4-12) mmol/L BUN (7-17) mg/dL Creatinine (0.7-1.0) mg/dL Estim Creat Clear Calc Estimated GFR (59 - ) Glucose (65-110) mg/dL Calcium (8.4-10.2) mg/dL Magnesium (1.6-2.3) mg/dL Total Bilirubin (0.2-1.3) mg/dL AST (14-36) U/L ALT (6-35) U/L Alkaline Phosphatase (38-126) U/L Lactate Dehydrogenase 212 (120-246) U/L Troponin I < 0.012 (0.000-0.034) ng/mL NT-Pro-B Natriuret Pep (19.9-100) pg/mL Total Protein (6.3-8.2) g/dL Albumin (3.5-5.1) g/dL POC Urine HCG, Qual (Negative) Imaging Data Radiologist's impression: STAT RAD CTA CHEST: No pulmonary emboli. Small left as well as moderate right pleural effusion with adjacent atelectasis. Impressions Chest CTA 01/26/24 05:43 Impression: No evidence of pulmonary embolus, aortic dissection, or aortic aneurysm. Moderate bilateral pleural effusions with bibasilar atelectatic change. ECG Data EKG #1: Attestation: I personally reviewed and interpreted this ECG as follows: ECG completion date: 01/26/24 ECG completion time: 01:59 Interpretation: Normal sinus rhythm at a rate of 70 beats per minute. [place] interval 108. QRS 91. QT/QTC 392/413. Patient has T-wave inversions in lead 3 but otherwise upright in normal in contiguous inferior leads 2 and AVF. There are also T-wave inversions in V2 and V3 which were appreciated on EKG last night. Patient also has EKG findings of a T-wave inversion in V4 which is new. EKG #2: Attestation: I personally reviewed and interpreted this ECG as follows: ECG completion date: 01/26/24 ECG completion time: 02:16 Prior ECG tracings: available for review Interpretation: POSTERIOR EKG. Normal sinus rhythm at a rate of 60 beats per minute. [place] interval at 101 milliseconds. QRS 91. QT/QTC 400/417. There are T-wave inversions that remain in 3 and AVF. T-wave inversions remain in V2 and V3. Leads V7 through V9 (previous V4-V6) are without T wave inversions or ST elevation. EKG #3: Attestation: I personally reviewed and interpreted this ECG as follows: ECG completion date: 01/26/24 ECG completion time: 05:48 Interpretation: Sinus rhythm with a ventricular rate of 62 beats per minute. There is some R to R variation consistent with sinus arrhythmia. [place] interval 110. QRS 106. QT/QTC 432/438. Good R-wave progression across the precordial leads. T-wave inversion in lead 3 but upright in lead 2 and AVF. T-wave flattening in V3 but otherwise normal throughout the rest of precordial leads V4 through V6. Discharge Plan Discharge Clinical Impression: Bilateral pleural effusion, Hypokalemia, Normocytic anemia Patient Disposition: Still a Patient Condition: Stable
[2024-01-26] MEDS: ONDANSETRON INJ 4 MG/2 ML VIAL IV PUSH (02:08)
--- NOTE | 2024-01-26 02:09 | ECG_ITS ---
Test Date: 2024-01-26 02:16:50 Measurements Intervals [place] Rate: 68 P: -6 TN: 101 QRS: 33 QRSD: 91 T: 5 QT: 400 QTc: 426 Interpretive Statements SINUS RHYTHM WITH SHORT [place] INTERVAL CONSIDER INFERIOR INFARCT, AGE INDETERMINATE ANTEROLATERAL INFARCT, AGE INDETERMINATE ST DEVIATION AND MODERATE T-WAVE ABNORMALITY, CONSIDER ANTERIOR ISCHEMIA ABNORMAL ECG Compared to ECG 01/26/2024 01:59:17 ANTEROLATERAL INFARCT, AGE INDETERMINATE NOW PRESENT Electronically Signed On 01-26-2024 06:48:18 SUPERVISOR GARMENT MANUFACTURING by Cristiano De La O D.O.
[2024-01-26 02:21] LABS: Basophils Percent Auto 0.3 % (0.2-1.2); Eosinophils Absolute Auto 0.2 K/mm3 (0-0.3); Eosinophils Percent Auto 2.7 % (0-4.4); Hematocrit 30.1 % (37.0-47.0); Hemoglobin 9.6 g/dL (12.0-15.0); Immature Granulocyte Absolute 0.02 K/mm3 (0.00-0.031); Immature Granulocyte Percent A 0.3 % (0-0.5); Lymphocytes Absolute Auto 1.55 K/mm3 (0.9-3.2); Lymphocytes Percent Auto 25.9 % (18.3-44.2); Mean Corpuscular HGB Conc 31.9 g/dl (32-36); Mean Corpuscular Hemoglobin 27.9 pg (26-34); Mean Corpuscular Volume 87.5 fl (80-100); Mean Platelet Volume 9.5 fl (7.4-10.4); Monocytes Absolute Auto 0.5 K/mm3 (0.1-0.6); Monocytes Percent Auto 8.2 % (2.6-8.5); Neutrophils Absolute Auto 3.8 K/mm3 (1.3-6.7); Neutrophils Percent Auto 62.6 % (45.5-73.1); Platelet Count Result 252 k/mm3 (150-375); Red Blood Count 3.44 M/mm3 (4.2-5.4); Red Cell Distribution Width 13.7 % (11.5-14.5)
[2024-01-26 02:23] LABS: Alanine Aminotransferase 12 U/L (6-35); Albumin Level 3.5 g/dL (3.5-5.1); Alkaline Phosphatase 47 U/L (38-126); Anion Gap 5 mmol/L (4-12); Aspartate Amino Transferase 16 U/L (14-36); Bilirubin,Total 0.4 mg/dL (0.2-1.3); Blood Urea Nitrogen 6 mg/dL (7-17); Calcium 8.5 mg/dL (8.4-10.2); Carbon Dioxide 28 mmol/L (22-30); Chloride 104 mmol/L (98-107); Estimated Glomerular Filt Rate > 60; Glucose 98 mg/dL (65-110); Potassium 3.2 mmol/L (3.4-5.0); Sodium 137 mmol/L (137-145)
[2024-01-26 02:34] LABS: NT Pro B Type Natriuretic Pept 470 pg/mL (19.9-100); Troponin I < 0.012 ng/mL (0.000-0.034)
[2024-01-26 02:35] LABS: D Dimer 3.75 ug/mL (<0.48)
[2024-01-26 03:09] LABS: BEDSIDEPREGUCG Negative (Negative)
[2024-01-26] MEDS: POTASSIUM BICARBONATE 25 MEQ TABEF PO (03:19)
[2024-01-26 03:32] LABS: Magnesium 1.9 mg/dL (1.6-2.3)
--- NOTE | 2024-01-26 05:31 | ECG_ITS ---
Test Date: 2024-01-26 05:48:18 Measurements Intervals [place] Rate: 62 P: 16 MT: 110 QRS: 32 QRSD: 106 T: 3 QT: 432 QTc: 441 Interpretive Statements SINUS RHYTHM WITH SINUS ARRHYTHMIA WITH SHORT [place] INTERVAL CONSIDER INFERIOR INFARCT, AGE INDETERMINATE NONSPECIFIC ST & T-WAVE ABNORMALITY- ANTERIOR LEADS ABNORMAL ECG Compared to ECG 01/26/2024 02:16:50 POSSIBLE ISCHEMIA NO LONGER PRESENT Electronically Signed On 01-26-2024 06:51:07 APPLIANCE SERVICE TECHNICIAN by Cristiano De La O D.O.
[2024-01-26 06:22] LABS: Troponin I < 0.012 ng/mL (0.000-0.034)
--- NOTE | 2024-01-26 07:05 | ADMGEN ---
This patient, Brad Long, was admitted to Medical Room 348-01. Patient/family oriented to hospital policies and general routines including ID bracelet, bed and alarms, visiting hours, pain management, procedures, bathroom and other care routines, personal items, smoking policy, room service/diet, and visiting hours. Information on how to activate the Rapid Response Team has been discussed. Patient/Family are encouraged to report perceived risks to care and to ask questions if they do not understand what they are told or what they should do.
[2024-01-26 07:27] LABS: Lactate Dehydrogenase 212 U/L (120-246)
[2024-01-26 08:07] LABS: Mean Platelet Volume 9.5 fl (7.4-10.4); Platelet Count Result 219 k/mm3 (150-375)
[2024-01-26 08:32] LABS: INR 1.1; Prothrombin Time 14.1 Seconds (11.1-14.7)
[2024-01-26 08:33] LABS: Partial Thromboplastin Time 29.6 Seconds (22.3-36.8)
--- NOTE | 2024-01-26 09:52 | PM.IMHP ---
H&P: HPI History of Present Illness Date/Time: 01/26/24 09:52 Chief Complaint: sob Narrative: 29 y.o with pmh/o IBS presents for SOB. she denies n/v/d- her abd symptoms settled but she developed sob and chest discomfort. IN ed, ekg was done.NOte from ed reviewed: Given the T-wave inversions, I did have a posterior EKG performed. ProBNP is 470 which is slightly elevated and concerning for a patient her age, although improved from value 24 hours ago. Mild hypokalemia. Repleted She was admitted to the hospital for further monitoring and a diagnostic and therapeutic thoracentesis. Order put in for ultrasound-guided thoracentesis as well as the associated labs. Dr. Mandel also recommended getting a repeat chest x-ray to compare to the previous even though the CT scan from today. We did discuss that on her interpretation she was concerned for pneumonia however both stat rad and in-house radiology read CT imaging as atelectasis rather than pneumonia and patient is without a leukocytosis. For this reason, will defer administering antibiotics. Recommending telemetry. of note, pt was discharged from the hospital on 01/23: This is a 29-year-old female with past medical history significant for IBS, patient presents for the 2nd time to the emergency room due to right lower quadrant pain, nausea no vomiting, no diarrhea, had 1 episode of fever, no night sweats, no chills, no rigors. has been her usual state of health prior to this. Preliminary workup was significant for CT of abdomen and pelvis cecal pneumatosis. patient has been admitted for further evaluation,management and treat Was seen per GI and surgery- no intervention needed. Stool studies for ova parasite and stool culture pending. Augmentin is sent to be completed. needs colonoscopy in 6-8 weeks needs to be on Augmentin till 01/27 pm dose for colitis. 01/25- pt does not want to have thoracentesis today at all. She is agreeable to have chest xray repeated and if her symptoms doesnot imorved and.or worsen, we will proceed with thoracentesis. Review of Systems Review of Systems: All systems reviewed & are unremarkable except as noted in HPI and below Respiratory: Respiratory: Reports dyspnea Gastrointestinal: Gastrointestinal: Denies abdominal pain Musculoskeletal: Musculoskeletal: Denies back pain [facility] Past Medical History Medical History Colitis IBS (irritable bowel syndrome) Leukocytosis Nausea and vomiting in adult Surgical History Surgical History No pertinent past surgical history Social History Social History Smoking status: Current some day smoker Tobacco type: cigarettes Additional smoking assessment comments: pt states she is a very light smoker for the last 2 months Alcohol intake: current Drinks per week: 1 Substance use: never Substance use type: does not use Do You Feel Safe in your Home?: Yes Lack of Transportation: No Lack of Food: Never True Current Housing: I Have Housing Concerned About Future Housing: No Difficulty Paying Gas/Electric Bills: No Difficulty Paying for Meds: No Currently Unemployed: No Education: Bachelor's Degree Difficulty w/ Childcare or Family Care: No Spiritual care concerns: No Meds Home Medications and Allergies Home Medications Medication Instructions Recorded Confirmed Type dextroamphetamine-amphetamine 10 10 mg PO DAILY 01/22/24 01/26/24 History mg tablet (Adderall) escitalopram oxalate 10 mg tablet 10 mg PO QHS 01/22/24 01/26/24 History (Lexapro) amoxicillin 500 mg-potassium 1 tablet PO Q12H #10 tabs 01/24/24 01/26/24 Rx clavulanate 125 mg tablet (Augmentin) ibuprofen 600 mg tablet 600 mg PO TID PRN pain #30 tabs 01/25/24 01/26/24 Rx Allergies Allergy/AdvReac Type Severity Reaction Status Date / Time No Known Allergies Allergy Verified 01/26/24 06:51 Vital Signs Vital Signs - 24 hr 01/26/24 01:14 01/26/24 01:54 01/26/24 03:07 Temperature 98.5 F Pulse Rate 87 63 Respiratory Rate 17 20 Blood Pressure 116/76 107/62 Pulse Oximetry 97 96 96 Oxygen Delivery Room Air 01/26/24 04:18 01/26/24 06:47 01/26/24 07:14 Temperature 98.2 F 98 F Pulse Rate 62 62 Respiratory Rate 18 16 Blood Pressure 116/75 122/76 Pulse Oximetry 100 97 97 Oxygen Delivery Room Air 01/26/24 08:00 Temperature Pulse Rate Respiratory Rate Blood Pressure Pulse Oximetry Oxygen Delivery Room Air H&P: Results Labs Labs: Short CBC 01/26/24 01/26/24 Range/Units 02:05 08:01 WBC 6.0 (4.5-10.0) K/mm3 Hgb 9.6 L (12.0-15.0) g/dL Hct 30.1 L (37.0-47.0) % Plt Count 252 219 (150-375) k/mm3 BMP 01/26/24 02:05 Sodium 137 Potassium 3.2 L Chloride 104 Carbon Dioxide 28 BUN 6 L Creatinine 0.50 L Glucose 98 Calcium 8.5 Cardiac Enzymes 01/26/24 01/26/24 01/26/24 Range/Units 02:05 02:05 05:42 Troponin I < 0.012 Cancelled < 0.012 (0.000-0.034) ng/mL Liver Function 01/26/24 Range/Units 02:05 Total Bilirubin 0.4 (0.2-1.3) mg/dL AST 16 (14-36) U/L ALT 12 (6-35) U/L Alkaline Phosphatase 47 (38-126) U/L Albumin 3.5 (3.5-5.1) g/dL Assessment and Plan Assessment and plan (1) Hypokalemia: Code(s): E87.6 - Hypokalemia Status: Acute (2) Bilateral pleural effusion: Code(s): J90 - Pleural effusion, not elsewhere classified Status: Acute Assessment and Plan: thoracentesis is offered in ed - pt does not want to have ti done today- she will try to - will repeat chets xray in am -will repeat ekg and probnp - if pt develops symptoms- will do diagnostic thora today- if not- will re evaluate after chest xray in am tomorrow (3) Tobacco abuse counseling: Code(s): Z71.6 - Tobacco abuse counseling Status: Acute Assessment and Plan: light tobacco smoker counseled on stopping Quality VTE Prophylaxis VTE prophylaxis: pharmacologic ordered
--- NOTE | 2024-01-26 10:45 | PC.NURSE ---
Respiratory notified of order for an Incentive spirometer.
--- NOTE | 2024-01-26 11:28 | PC.NURSE ---
Ultrasound notified of patients request to hold on the Thoracentesis.
[2024-01-27] VITALS: PULSE 62
--- NOTE | 2024-01-27 | ECHO_ITS ---
Patient Info Name: rBad Long Age: 29 years : 1995 Gender: Female Ht: 63 in Wt: 197 lbs BSA: 2.03 m2 HR: 65 bpm BP: 117 / 75 mmHg Heart Rhythm: Sinus Rhythm Technical Quality: Good Exam Date: 01/27/2024 9:29 AM Exam Location: Echo Lab Patient Status: Inpatient Admit Date: 01/26/2024 Staff Ordering Physician: Gertrude Hooper APRN Elevator Technician: Ruma Lopez RDCS Attending Provider: Joe Contreras MD Referring Physician: Rufus MELGAR; Exam Type: CA echo doppler color flow Study Info Indications - sob, elevated bnp Complete two-dimensional, color flow and Doppler transthoracic echocardiogram is performed. Summary 1. Left ventricular chamber dimension is normal. 2. Left ventricular systolic function is normal, estimated at 60-65%. 3. The left ventricular diastolic function is normal. 4. Right ventricular systolic function is normal. 5. No significant valvular disease. Left Ventricle Left ventricular chamber dimension is normal. Left ventricular systolic function is normal, estimated at 60-65%. There is no increased left ventricular wall thickness. The left ventricular diastolic function is normal. Right Ventricle Right ventricular chamber dimension is normal. Right ventricular systolic function is normal. Left Atria Left atrial chamber dimension is normal. Right Atria Right atrial chamber dimension is normal. Atrial Septum Intact interatrial septum visualized by color flow imaging. Aortic Valve The aortic valve is not well visualized. There is no aortic valve stenosis. There is no aortic valve regurgitation. Pulmonic Valve The pulmonic valve is not well visualized. There is no pulmonic regurgitation. Mitral Valve There is trace mitral valve regurgitation. Tricuspid Valve There is trace tricuspid valve regurgitation. Pericardium/Pleural There is no pericardial effusion. Inferior Vena Cava Dilated inferior vena cava with >50% collapse upon inspiration consistent with elevated right atrial pressure, 8 mmHg. Aorta The aortic root size at the sinus of Valsalva is normal. Left Ventricular Outflow Tract Name Value Normal LVOT 2D LVOT Diameter 1.8 cm LVOT Doppler LVOT Peak Gradient 4 mmHg LVOT Mean Gradient 2 mmHg LVOT VTI 23 cm LVOT VTI/AV VTI Ratio 0.7 LVOT Stroke Volume 59 ml LVOT CO 3.5 l/min LVOT CI 1.7 l/min/m2 Pulmonic Valve Name Value Normal PV Doppler PV Peak Gradient 5 mmHg Mitral Valve Name Value Normal MV Doppler MV Decel [place] 654 cm/s2 MV PHT 61 ms MV Area (PHT) 3.6 cm2 4.0-5.0 MV Diastolic Function MV E Peak Velocity 137 cm/s MV A Peak Velocity 75 cm/s MV E/A 1.8 MV Decel Time 210 ms MV Annular TDI MV E/e' (Septal) 11.9 <=8.0 MV E/e' (Lateral) 9.6 <=8.0 MV E/e' (Average) 10.7 Tricuspid Valve Name Value Normal TV Regurgitation Doppler TR Peak Velocity 230 cm/s TR Peak Gradient 8 mmHg Estimated PAP/RSVP RA Pressure 8 mmHg <=5 PA Systolic Pressure 29 mmHg <36 RV Systolic Pressure 29 mmHg <36 Aortic Valve Name Value Normal AV Doppler AV Peak Velocity 157 cm/s AV Peak Gradient 10 mmHg AV Mean Gradient 6 mmHg AV VTI 33 cm AV Area (Cont Eq VTI) 1.8 cm2 >=3.0 AV Area (Cont Eq Josef) 1.5 cm2 AV Regurgitation 2D LVOT Area 2.5 cm2 Ventricles Name Value Normal LV Dimensions 2D/MM IVS Diastolic Thickness (2D) 0.6 cm 0.6-1.0 LVID Diastole (2D) 4.7 cm 3.8-5.2 LVIW Diastolic Thickness (2D) 0.8 cm 0.6-0.9 LVID Systole (2D) 3.0 cm 2.2-3.5 LVOT Diameter 1.8 cm LV Mass (2D Cubed) 108.34 g 67.00-162.00 LV Mass Index (2D Cubed) 53 g/m2 43-95 Relative Wall Thickness (2D) 0.34 LV Fractional Shortening/Ejection Fraction 2D/MM LV Fractional Shortening (2D) 37 % 27-45 LV EF (2D Teicholz) 67 % 54-74 LV Diastolic Volume (4C MOD) 95 ml LV EF (4C MOD) 63 % LV Diastolic Volume (2C MOD) 87 ml LV EF (2C MOD) 64 % LV Diastolic Volume (BP MOD) 91 ml 46-106 LV Diastolic Volume Index (BP MOD) 45 ml/m2 29-61 LV Systolic Volume (BP MOD) 35 ml 14-42 LV Systolic Volume Index (BP MOD) 17 ml/m2 8-24 LV EF (BP MOD) 62 % 54-74 LV Diastolic Length (4C) 7.9 cm LV Systolic Length (4C) 6.3 cm LV Stroke Volume (4C MOD) 60 ml Atria Name Value Normal LA Dimensions LA Volume (4C A-L) 36 ml RA Dimensions RA Area (4C) 12.8 cm2 <=18.0 Report Signatures
[2024-01-27 04:00] VITALS: PULSE 53
[2024-01-27 06:00] VITALS: BP 117/75; PULSE 62; RESP 20; TEMP 36.1; O2SAT 98
[2024-01-27 06:06] LABS: NT Pro B Type Natriuretic Pept 338 pg/mL (19.9-100)
[2024-01-27 08:00] VITALS: PULSE 57
--- NOTE | 2024-01-27 08:11 | PM.IMPN ---
Progress Note: A&P Assessment and Plan (1) Hypokalemia: Code(s): E87.6 - Hypokalemia Status: Acute (2) Bilateral pleural effusion: Code(s): J90 - Pleural effusion, not elsewhere classified Status: Acute Assessment and Plan: resp. vs cardiac vs TB vs autoimmune causes thoracentesis is offered in ed - pt does not want to have it done today - wanted to wait another day to see if any improvement - will repeat chest xray in am - will repeat ekg and probnp - if pt develops symptoms- will do diagnostic thora today- if not- will re evaluate after chest x ray in am tomorrow 01/26- echo is ordered chest xray and ekg with no significant changes discussed plan of care with pt- advised thoracentesis to differentiate transudate and exudate pt wants to see cardiology to discuss further and make decision about thora -continue to monitor for now - she will try to get records from [facility] as she claims all of her EKGs that she had done were always normal . (3) Tobacco abuse counseling: Code(s): Z71.6 - Tobacco abuse counseling Status: Acute Assessment and Plan: light tobacco smoker counseled on stopping Time Spent With Patient Time with patient: Greater than 35 minutes Subjective Date/time seen: 01/27/24 08:11 Interval history: pt is seen and examined Review of Systems Review of Systems: All systems reviewed & are unremarkable except as noted in HPI and below Cardiovascular: Cardiovascular: Reports dyspnea Respiratory: Respiratory: Reports dyspnea Gastrointestinal: Gastrointestinal: Denies abdominal pain Musculoskeletal: Musculoskeletal: Denies back pain Objective Data Vital Signs Vital Signs: Vital Signs - 24 hr 01/26/24 09:43 01/26/24 12:00 01/26/24 14:55 Temperature 98.1 F Pulse Rate 59 L 56 L 55 L Respiratory Rate 16 Blood Pressure 107/76 Pulse Oximetry 95 Oxygen Delivery 01/26/24 16:00 01/26/24 21:54 01/26/24 20:00 Temperature 97.3 F L Pulse Rate 67 85 115 H Respiratory Rate 18 Blood Pressure 102/57 L Pulse Oximetry 97 Oxygen Delivery 01/26/24 20:00 01/27/24 00:00 01/27/24 04:00 Temperature Pulse Rate 62 53 L Respiratory Rate Blood Pressure Pulse Oximetry Oxygen Delivery Room Air 01/27/24 06:00 Temperature 97.0 F L Pulse Rate 62 Respiratory Rate 20 Blood Pressure 117/75 Pulse Oximetry 98 Oxygen Delivery Intake/Output Intake/Output: Intake & Output 01/24/24 01/25/24 01/26/24 01/27/24 23:59 23:59 23:59 23:59 Intake Total 240 400 Balance 240 400 Meds/Results Medications: Active Medications Generic Name Dose Route Start Last Admin Trade Name Freq PRN Reason Stop Dose Admin Acetaminophen 650 mg 01/26/24 06:18 Acetaminophen 325 Mg Tablet PO Q4H PRN Mild Pain (1-3) or Fever Amoxicillin/Clavulanate Potassium 1 tablet 01/26/24 12:00 01/27/24 04:48 Amoxicillin/Clavulanate K 500-125 Mg Tab PO Not Given Q12HR [facility] Enoxaparin Sodium 40 mg 01/27/24 09:00 Enoxaparin 40 Mg/0.4 Ml Syringe SUB-Q DAILY [facility] Escitalopram Oxalate 10 mg 01/26/24 21:00 01/27/24 04:48 Escitalopram Oxalate 10 Mg Tablet PO Not Given QHS [facility] Ibuprofen 600 mg 01/26/24 11:33 Ibuprofen 600 Mg Tablet PO TID PRN Pain Rated 1-3 Miscellaneous Information 1 each 01/26/24 00:01 01/26/24 15:05 Enter Ht/Wt To Patient Profile For Pharmacy To Calculate Dosing XX 02/25/24 00:00 Not Given CLARIFY [facility] Miscellaneous Information 1 each 01/26/24 00:01 01/26/24 15:44 Adderall Is Nonformulary. Can She Use Home Supply? XX 02/25/24 00:00 Not Given CLARIFY [facility] Non-Formulary Medication 10 mg 01/27/24 09:00 Dextroamphetamine-Amphetamine [Adderall] PO 02/26/24 08:59 DAILY [facility] Ondansetron HCl 4 mg 01/26/24 06:18 Ondansetron Inj 4 Mg/2 Ml Vial IV PUSH Q4H PRN Nausea Radiology Results: ITS Impressions Chest CTA 01/26/24 05:43 Impression: No evidence of pulmonary embolus, aortic dissection, or aortic aneurysm. Moderate bilateral pleural effusions with bibasilar atelectatic change. Chest X-Ray 01/27/24 06:18 Impression: Small left pleural effusion and possible minimal right pleural effusion, with left basilar atelectatic change. Focal opacity in the right suprahilar region, possibly prominent vessel. Attention on follow-up advised. Labs Labs: Laboratory Results - last 24 hr 01/26/24 01/27/24 08:01 05:41 Plt Count 219 MPV 9.5 PT 14.1 INR 1.1 APTT 29.6 NT-Pro-B Natriuret Pep 338 H Quality VTE Prophylaxis VTE prophylaxis: pharmacologic ordered
--- NOTE | 2024-01-27 09:12 | ECG_ITS ---
Test Date: 2024-01-27 09:18:53 Measurements Intervals [place] Rate: 60 P: 38 MO: 109 QRS: 49 QRSD: 90 T: 31 QT: 432 QTc: 433 Interpretive Statements SINUS RHYTHM WITH MARKED SINUS ARRHYTHMIA WITH SHORT MO INTERVAL ST DEVIATION AND MODERATE T-WAVE ABNORMALITY, CONSIDER ISCHEMIA ABNORMAL ECG Compared to ECG 01/27/2024 09:05:37 Short MO interval now present Possible ischemia now present Electronically Signed On 01-27-2024 09:24:25 INSTRUCTOR HAIRSPRING by Cristiano De La O D.O.
[2024-01-27 14:00] VITALS: BP 127/75; PULSE 74; RESP 14; TEMP 36.2; O2SAT 98
--- NOTE | 2024-01-27 14:37 | PM.CNCAR ---
Assessment and Plan Assessment and plan (1) Bilateral pleural effusion: Code(s): J90 - Pleural effusion, not elsewhere classified Status: Acute Assessment and Plan: Etiology is unclear at this point, but as her echo was unremarkable this seems not to be cardiac in origin. She is refusing a diagnostic thoracentesis at this point. Further workup and management per hospitalist. (2) Abnormal EKG: Code(s): R94.31 - Abnormal electrocardiogram [ECG] [EKG] Status: Acute Assessment and Plan: She has T wave inversions on leads V1 - V3 without any other supporting evidence or suspicion for myocardial ischemia. She also has a short [place] interval, so consider WPW, however she does not have delta waves and QRS is normal in duration. Possible strain pattern for LVH. Will arrange for outpatient follow up in our office and will consider further testing such as cardiac MRI at that time. History of Present Illness History of Present Illness Consult date/time: 01/27/24 14:37 Requesting physician: Gertrude Hooper APRN Consult reason: Other (pleural effusions) Reason For Visit: bilateral pleural effusions need diagnostic therap Narrative: Brad Long is a 29 year old with IBS who was recently hospitalized here for colitis and sepsis. She returned to the hospital the day after discharge with complaints of shortness of breath and orthopnea. Her chest imaging showed moderate bilateral pleural effusions and she was admitted with the intention of performing a thoracentesis mainly for diagnostic purposes. Patient denies any cardiac history and denies any chest pain, edema, palpitations, syncope. She is not interested in undergoing a thoracentesis at this point, but her effusions have improved as has her shortness of breath. She is lying comfortably in bed at the time of my visit with her and has no active complaints. Review of Systems Review of Systems: All systems reviewed & are unremarkable except as noted in HPI and below PMFSH Past Medical History Medical History Colitis IBS (irritable bowel syndrome) Leukocytosis Nausea and vomiting in adult Surgical History Surgical History No pertinent past surgical history Social History Social History Smoking status: Current some day smoker Tobacco type: cigarettes Additional smoking assessment comments: pt states she is a very light smoker for the last 2 months Alcohol intake: current Drinks per week: 1 Substance use: never Substance use type: does not use Do You Feel Safe in your Home?: Yes Lack of Transportation: No Lack of Food: Never True Current Housing: I Have Housing Concerned About Future Housing: No Difficulty Paying Gas/Electric Bills: No Difficulty Paying for Meds: No Currently Unemployed: No Education: Bachelor's Degree Difficulty w/ Childcare or Family Care: No Spiritual care concerns: No Meds Home Medications and Allergies Home Medications Medication Instructions Recorded Confirmed Type dextroamphetamine-amphetamine 10 10 mg PO DAILY 01/22/24 01/26/24 History mg tablet (Adderall) escitalopram oxalate 10 mg tablet 10 mg PO QHS 01/22/24 01/26/24 History (Lexapro) amoxicillin 500 mg-potassium 1 tablet PO Q12H #10 tabs 01/24/24 01/26/24 Rx clavulanate 125 mg tablet (Augmentin) ibuprofen 600 mg tablet 600 mg PO TID PRN pain #30 tabs 01/25/24 01/26/24 Rx Allergies Allergy/AdvReac Type Severity Reaction Status Date / Time No Known Allergies Allergy Verified 01/26/24 06:51 Vital Signs Vital Signs - 24 hr 01/26/24 14:55 01/26/24 16:00 01/26/24 21:54 Temperature 36.7 C 36.3 C L Pulse Rate 55 L 67 85 Respiratory Rate 16 18 Blood Pressure 107/76 102/57 L Pulse Oximetry 95 97 Oxygen Delivery 01/26/24 20:00 01/26/24 20:00 01/27/24 00:00 Temperature Pulse Rate 115 H 62 Respiratory Rate Blood Pressure Pulse Oximetry Oxygen Delivery Room Air 01/27/24 04:00 01/27/24 06:00 01/27/24 08:00 Temperature 36.1 C L Pulse Rate 53 L 62 57 L Respiratory Rate 20 Blood Pressure 117/75 Pulse Oximetry 98 Oxygen Delivery 01/27/24 14:00 01/27/24 14:00 Temperature 36.2 C L Pulse Rate 74 Respiratory Rate 14 Blood Pressure 127/75 Pulse Oximetry 98 Oxygen Delivery Room Air Exam Const: General: comfortable, no acute distress, alert and awake Orientation/consciousness: patient oriented x3 HENMT: Head: normal to inspection Eyes: General: appearance normal, both eyes and all related structures Pupils: Equal, round and reactive pupils present Neck: Neck: normal visual inspection, supple and no JVD Carotids: normal carotid upstroke Resp: Effort & Inspection: normal respiratory effort Auscultation: clear to auscultation bilaterally Cardio: Rate: regular rate Rhythm: regular rhythm Heart sounds: S1 normal heart sound present, S2 normal heart sound present and no murmurs GI: Auscultation: normal bowel sounds Skin: General skin exam: normal color Neuro: General: patient oriented x3 Cranial nerves: Yes Equal, round and reactive pupils present Extrem: General: normal to inspection Other: no edema Psych: Appearance: grossly normal Mental Status: mental status grossly normal Results Labs and Meds 01/26/24 08:01 01/26/24 02:05 Lab results: Intake and Output 01/26/24 01/27/24 01/27/24 23:59 07:59 15:59 Intake Total 240 400 0 Balance 240 400 0 Intake: Oral 240 400 0 Other: # Unmeasured Voids 1 2
--- NOTE | 2024-02-04 07:32 | P.DS_ITS ---
DS: Admitting Diagnosis Discharge Date 01/27/24 Admitting Diagnosis sob, chest pain DS: Discharge Diagnosis Discharge Diagnosis (1) Hypokalemia: Code(s): E87.6 - Hypokalemia Status: Acute (2) Bilateral pleural effusion: Code(s): J90 - Pleural effusion, not elsewhere classified Status: Acute (3) Tobacco abuse counseling: Code(s): Z71.6 - Tobacco abuse counseling Status: Acute Assessment and Plan: light tobacco smoker counseled on stopping DS: Summary Hospital Course Hospital Course: Pt was admited for sob, chest pain. Following problems were addressed: resp. vs cardiac vs TB vs autoimmune causes thoracentesis is offered in ed- but was hesitant to get it done- after discussion-opted not to proceed with thoracentesis. 01/26- echo is ordered-unremarkable chest xray and ekg with no significant changes discussed plan of care with pt- advised thoracentesis to differentiate transudate and exudate Cardiology was consulted ofr EKG changes and elevated BNP. Cardiology didnot think it was cardiac in nature. As to abd ekg- She has T wave inversions on leads V1 - V3 without any other supporting evidence or suspicion for myocardial ischemia. She also has a short IA interval, so consider WPW, however she does not have delta waves and QRS is normal in duration. Possible strain pattern for LVH. Will arrange for outpatient follow up in our office and will consider further testing such as cardiac MRI at that time. She was stable and cjhose to go home with a close follow up with her PCP and cardiology Status at Discharge Functional status at discharge: independent ambulation Overall status at discharge: patient is progressing back to baseline Time Spent with Patient Time attestation: Total time spent providing and/or coordinating discharge services: Time spent: Greater than 30 minutes Exam Const: General: comfortable Eyes: General: appearance normal, both eyes and all related structures Resp: Effort & Inspection: normal respiratory effort Cardio: Rate: regular rate Rhythm: regular rhythm GI: GI Palp: Yes Soft to palpation Auscultation: normal bowel sounds Skin: General skin exam: normal color Neuro: General: gait normal Motor exam (neuro): 5/5 motor strength present throughout Sensory Exam: normal sensation Extrem: General: normal to inspection Psych: Mental Status: mental status grossly normal DS: Data Data Completed and Pending Pending studies at discharge: Pending at discharge 01/26/24 06:17 Cytology [PTH] Routine Discharge Plan Discharge Consulting providers: Francisco Javier Nunez; Kristie White; Gertrude Hooper; Debbie Cuellar; Cristiano De La O; Vinny Hurley Discharging Clinician: Gertrude Hooper Anticipated Discharge Date/Time: 01/27/24 15:14 Patient Disposition: Home, Self-Care Activity: may shower Diet: heart healthy Discharge Instructions: Finish your antibiotic as prescribed. Select a primary care provider and follow up in 1 week. Follow up with cardiology for you abnormal EKG. Please continue your incentive spirometer at home as this helps with deep breathing. Patient Instructions: Antibiotic Form, How to Stop Smoking (GEN), Pain Management (DC) Stand Alone Forms: General Discharge Information, Work/School Release IP Follow-up/Referrals: Kristie White, [employer] [Advanced Practice Nurse] - 2 Weeks PHYSICIAN,NEGATIVE TURNER APPRENTICE [Primary Care Provider] - 1 Week Discharge Medications: Continued dextroamphetamine-amphetamine [Adderall] 10 mg Tablet 10 mg PO DAILY escitalopram oxalate [Lexapro] 10 mg Tablet 10 mg PO QHS amoxicillin-pot clavulanate [Augmentin] 500-125 mg tablet 1 tablet PO Q12H Qty: 10 0RF ibuprofen 600 mg tablet 600 mg PO TID PRN (Reason: pain) Qty: 30 0RF Date of admission: 01/26/24 06:18 Primary Care Provider: PHYSICIAN,NEGATIVE TURNER APPRENTICE Admitting Provider: Joe Contreras V. Attending physician on admission: Joe Contreras V. Condition: Stable Quality VTE Prophylaxis VTE prophylaxis: pharmacologic ordered Hospitalist MIPS Heart Failure (Exclusion) Patient has history of Heart Transplant or Left Ventricular Assistive Device?: No IF YES, STOP HERE Heart Failure (Qualifier) Patient has current or prior documentation of LVEF less than or equal to 40%, or mod/servere depressed LVSF?: No IF NO, STOP HERE
== END 2024-01-27 15:50 | disposition home or self-care (01) ==
LOC: ANHED 01:38 → ANH3MED 06:40
PROVIDERS: Nurse Practitioner; Admitting Provider Internal Medicine; Emergency Provider Student in an Organized Health Care Education/Training Program; Visit Provider Internal Medicine
DX: J90 Pleural effusion, not elsewhere classified (principal); E87.6 Hypokalemia; D64.9 Anemia, unspecified; F17.210 Nicotine dependence, cigarettes, uncomplicated; Z71.6 Tobacco abuse counseling; R94.31 Abnormal electrocardiogram [ECG] [EKG]; K58.9 Irritable bowel syndrome, unspecified; Z79.899 Other long term (current) drug therapy
CPT/HCPCS: 36415; 71045; 71275; 80053; 81025; 83615; 83735; 83880; 84484; 85025; 85049; 85380; 85610; 85730; 93005; 93306; 96374; 99285; A9270; G0378; J2405; Q9967